=== PATIENT | male | born 1935 | race Caucasian/White ===

== ENCOUNTER 2019-04-16 07:40 | Day surgery (SDC) | payer OTHER ==
--- NOTE | 2019-04-14 12:07 | RAD REPORT ---
EXAM DESCRIPTION: RAD - Chest Pa And Lat (2 Views) - 04/14/2019 11:52 am CLINICAL HISTORY: preop Chest pain. COMPARISON: CHEST PA AND LAT 2 VIEW dated 03/27/2010 FINDINGS: The lungs are mildly emphysematous but clear. The heart is moderately enlarged in size. No displaced fractures. IMPRESSION: Mild COPD.
[2019-04-14 12:14] LABS: Absolute Lymphocytes (CBC) 1.3 K/uL (0.7-4.9); Basophils % 0.8 % (0-1.3); Hematocrit 39.8 % (39.6-49.0); Lymphocytes % 20.9 % (15.3-44.8); MPV 8.1 fL (7.6-11.3)
[2019-04-16] MEDS ORDERED: CEFAZOLIN/SWI 1gm 1 GM/10 ML SYR ONE (08:15)
[2019-04-16] MEDS ORDERED: Ringers Lactate 1,000 ML IV ONE (08:15)
[2019-04-16] MEDS ORDERED: LIDOCAINE 1% MPF 5 ML VIAL ONE (08:27)
[2019-04-16] MEDS ORDERED: propofoL 200 MG/20 ML VIAL IV ONE ×2 (08:27→09:50)
[2019-04-16] MEDS ORDERED: FENTANYL CITR 100 MCG/2 ML ONE ×2 (08:27→09:50)
[2019-04-16] MEDS ORDERED: ONDANSETRON 4 MG/2 ML VIAL ONE (09:50)
[2019-04-16] MEDS ORDERED: LIDOCAINE 2% MPF 5 ML VIAL ONE (09:50)
[2019-04-16] MEDS ORDERED: MIDAZOLAM HCL 2 MG/2 ML INJ ONE (09:50)
[2019-04-16] MEDS: HYDROMORPHONE HCL 1 MG/ML INJ ONE ×4 (11:20→11:35)
[2019-04-16] MEDS: MEPERIDINE HCL 25 MG/0.5 ML ONE ×2 (11:39→11:42)
[2019-04-16] MEDS ORDERED: KETOROLAC 30 MG/ML INJ ONE (11:42)
[2019-04-16] MEDS ORDERED: HYDROCODONE/APAP 7.5/325 MG TAB PO ONE (12:30)
[2019-04-16] MEDS ORDERED: HYDROCODONE/APAP 7.5/325 MG TAB ONE (12:34)
[2019-04-16] MEDS ORDERED: TAMSULOSIN 0.4 MG SR CAP PO ONE ×2 (14:05→14:15)
[2019-04-16 16:32] VITALS: TEMP 97.5
[2019-04-16 16:35] VITALS: O2SAT 98
[2019-04-16 16:36] VITALS: BP 139/81
--- NOTE | 2019-04-16 22:07 | OP ---
Date of Procedure: 04/16/2019 Surgeon: Rafal Arreguin MD Interventional Cardiologist: CHRISTIN Hernandez Preoperative Diagnosis: Recurrent right inguinal hernia. Postoperative Diagnosis: Recurrent incarcerated right inguinal hernia. Estimated Blood Loss: Minimal. Specimen: Hernia sac. Finding: As above. Anesthesia: General. Complications: None. Disposition: Patient tolerated the procedure in stable condition, taken to Recovery in good general condition. Operative Note: The patient was brought to the OR and placed in supine position. General anesthesia was begun. Patient was prepped and draped in the usual sterile fashion. Marcaine 0.5% was infiltra reynaldo in a field block fashion. A 15-blade was used to make a 5 cm oblique incision between the pubic tubercle and the anterior iliac superior spine. Subcutaneous tissues were divided. Tamir fascia id entified and divided and to that the hernia sac was seen with small bowel present and this was a dire ct hernia. There was no aponeurosis to be identified in the conjoined tendon. There was a hole betw een the conjoined tendon and shelving edge, approximately 3 cm in diameter. The bowel was carefully reduced back into the peritoneal cavity. Part of the hernia sac was excised and sent to pathology an d then 2-0 Prolene was used to close the defect with interlocking 2-0 Prolene suture and then the Mar cameron mesh placed over the repair, secured with the VersaTack stapler medially to the pubic tubercle, s uperior to the conjoined tendon, and inferior to the shelving edge, laterally to each other. There w as no indirect sac. Cord structures were all retracted out of the field of dissection, placed back i n ab anatomic location after the repair and then 3-0 chromic was used to approximate the Tamir fasci a and 3-0 chromic also used to close skin. Sterile dressing was applied. Patient was awakened and t aken to Recovery in good general condition. Discharge Note: The patient will go to Day Surgery and home when stable. Disposition: Home. Condition: Stable. Discharge Instructions: Resume home medications and diet. Activity as tolerated. No heavy lifting. Remove outer dressing in 2 days. Shower. Keep wound clean and dry. Keep Steri-Strips on at all t imes, ice pack, scrotal support, Tylenol No. 3 one tablet p.o. q.4 p.r.n. pain. Follow up in my offi ce in a week. Call for appointment. /CALLYL Voice ID: [id number] Report ID: [id number]
== END 2019-04-16 15:45 | disposition home or self-care (01) ==
LOC: OR 07:40
PROVIDERS: ATTEND Surgery
PROC: 0YU50JZ Supplement Right Inguinal Region with Synthetic Substitute, Open Approach (ICD-10-PCS; principal; 2019-04-16 09:00)
DX: K40.31 Unilateral inguinal hernia, with obstruction, without gangrene, recurrent (principal); I48.20 Chronic atrial fibrillation, unspecified; I10 Essential (primary) hypertension; Z80.0 Family history of malignant neoplasm of digestive organs
CPT/HCPCS: 85025; 80048; 36415; 88302; 71046; 49521; J2704; J2250; J3010; J2175; J1170 ×2; J0690; J7120; J2405

== ENCOUNTER 2020-09-30 08:36 | Emergency (ER) | payer OTHER ==
--- OUTSIDE RECORDS SUMMARY | 2020-09-30 08:41 | XMS REPORT | Continuity of Care Document ---
:1935 Author Organization [facility] t Address [address] [place] [address] Care Team Providers Name Role Phone MAGDY Primary Care Physician Unavailable Shelia ALONZO Attending Clinician Miracle Johnson MD Attending Clinician Miracle JOHNSON Attending Clinician Unavailable Selina Cabezas MD Attending Clinician aDvid QURESHI, J Attending Clinician Simran STANTON Attending Clinician SIMRAN Attending Clinician Unavailable Yudith CHEATHAM, A Attending Clinician Unavailable Siomara Hopson MD Attending Clinician SIOMARA HOPSON Attending Clinician Unavailable Farrukh GREEN Attending Clinician FARRUKH Attending Clinician Unavailable Kenrick Palomino MA Attending Clinician Zachary MURRAY Attending Clinician Unavailable Lizy ALONZO, RDiane Attending Clinician Mechelle ALONZO Attending Clinician MECHELLE Attending Clinician Unavailable Nayeli ALONZO N Attending Clinician Tami TYLER Attending Clinician Unavailable DETT Attending Clinician Unavailable MAGDY Attending Clinician Unavailable MD MAGDY Attending Clinician Unavailable MAGDY Admitting Clinician Unavailable MD MAGDY Admitting Clinician Unavailable Payers Payer Name Policy Type Policy Effective Date Expiration Date Sour ce Number AETERIKA MEDICAREAETNA [id number] 2013 MD Kathie carlisle MEDICARE 00:00:00 [id number] -PresentMedicare AETERIKA MEDICAREAETNA [id number] [address] MEDICARE HMO/PPO 00:00[id number] Problems Condition Condition Condition Status Onset Resolution Last Treating Co mments Source Name Details Category Date Date Treatment Clinician Date Dyspnea Dyspnea Disease Active Last MD 5-14 Assessmen Anderso 00:00: t & Plan: n 00 Formattin g of this note might be different from the original. Perhaps secondary to his heartburn , advised to follow up with cardiolog y Abdominal Abdominal Disease Active Met hodi pain pain 3-18 st 00:00: Hospita 00 l Liver Liver Disease Active 2019-03 Last function function 1-13 Assessmen And erso tests tests 00:00: t & Plan: n abnormal abnormal 00 Formattin g of this note might be different from the original. Recommend patient continue to follow up with PCP for evaluatio n and managemen t. Patient asymptoma tic at this time. 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 Monitor on follow up. Encounter Encounter Disease Active Overview: MD for other for other 1-06 Formattin A nderso preprocedu preprocedu 00:00: g of this n ral ral 00 note examinatio examinatio might be n n different from the original. Outside records received and sent for scannin. Last Card progress note 09/23/18: A-fib stable, rate controlle d. Anticoagu lation is adequate. Continue current medical therapyEd malcolm - improved. No changes made to present regimenHT N- stable, reasonabl e well-cont rolled. No changes to present regimen2. STRESS test 05/27/12: Normal myocardia l perfusion , not gated due to A-fib3. ECHO 05/26/12: EF 50-55%, dilated LA, RA, dilated aorta, LVH, A fib, trace AR, MR, VA, poor LVC, mild TR, mild PHTN Hypertensi Hypertensi Disease Active Overview : on on 03-09 Formatashleigh Anderso 00:00: g of this n 00 note is different from the original. BP Readings from Last 3 Encounter s: 03/09/19 132/75 02/23/19 149/73 11/21/18 147/75 Last Assessmen t & Plan: Formattin g of this note might be different from the original. 158/77 in clinic today. Will continue to monitor with routine BP evaluatio ns. Atrial Atrial Disease Active Overview: fibrillati fibrillati 03-09 Shakira Andrhianna on on 00:00: g of this n 00 note might be different from the original. Rate controlle d. Asymptoma tic. On anticoagu lation.EK G today 03/09/2019: Atrial fibrillat ion, rate 64. Abnrm T, consider ischemia, anterolat eral lds Followed by outside cardiolog ist Dr Wicho Fairchild in [place], [place] ). Sees him q6mths, last visit was 10/2018. Pt does not recall having a recent stress or echo over the last couple of years. Reports 10/2018 he was seen for RLE edema. Was placed on lasix and potassium was added to his losartan. He was also placed on sodium restricti on and edema resolved. None noted today.Las t Assessmen t & Plan: Formattin g of this note might be different from the original. Patient had a pacemaker inserted in August 23. He states he has been feeling much better since then. Follow up in 3 months with local cardiolog ist. Current Current Disease Active Overview: use of use of 03-09 Shakira Anderso anticoagul anticoagul 00:00: g of this n ant ant 00 note might be different from the original. On pradaxa for A-fib. Pt unsure when exactly to hold so he did not take it this morning. LD was 03/08/2019 PM. To see IMPAC today. Neuropathy Neuropathy Disease Active Overview : - Formattin Anderso 00:00: g of this n 00 note might be different from the original. jake feet, LLE, on gabapenti n, followed by outside neurologi st Ex-smoker Ex-smoker Disease Active Overview: - Formattin Anderso 00:00: g of this n 00 note might be different from the original. Remote hx, quit 38 yrs ago Sleep Sleep Disease Active Overview: apnea apnea 03-09 Formattin Anderso 00:00: g of this n 00 note might be different from the original. Not using CPAP. Allergic Allergic Disease Active Overview: rhinitis rhinitis 03-09 Formattin And erso 00:00: g of this n 00 note might be different from the original. On shala and singulair daily. Had asthma as a child, but denies any issues as an adult. 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 M[facility] Disease Active current current 03-09 Anderso use of use of 00:00: n anticoagul anticoagul 00 ant ant Multiple Multiple Disease Active actinic actinic 08-07 Anderso keratoses keratoses 00:00: n 00 Basal cell Basal cell Disease Active M D carcinoma carcinoma 08-07 Miguel rso of skin of of skin of 00:00: n right right 00 upper upper limb, limb, including including shoulder shoulder Personal Personal Disease Active Last MD history of history of 08-07 Assessmen Anderso malignant malignant 00:00: t & Plan: n melanoma melanoma 00 Formattin of skin of skin g of this note might be different from the original. The CT imaging study was reviewed today with result interpret ation as indicated , I personall y reviewed the images and agree that there is no definite evidence of disease recurrenc e/metasta ses. Lab results were reviewed and all are within acceptabl e parameter s. Please refer to EPIC for full detailed labs and imaging report. US will be completed after this visit and we will call him next week for result review. The patient will continue in observati on and will return to clinic in 6 months if US shows no evidence of disease recurrenc e. Patient will continue follow up with Dermatolo gy in the interim. 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 Mr Diggs is an 83 year old male with stage IIB scalp melanoma. He underwent wide local excision of the right occipital scalp melanoma and sentinel lymph node biopsies which were negative. He presents today after restaging CTchest w/o contrast and USG of the neck. Labs and PE are stable. CTchest demonstra donta tiny nonspecif ic lung nodules that remain stable from previousl y and USG of HnN is without adenopath y.Patient was seen in clinic today and is doing well off treatment . His labs are within acceptabl e parameter s.He will follow up with Dr. Hopson in 4 month(s) for restaging scans.Pat ient encourage d to follow-up with dermatolo gy and continue self skin and lamin exams. Patient to notify us of any changes to current health status. Allergies, Adverse Reactions, Alerts This patient has no known allergies or adverse reactions. Family History Family Member Diagnosis Comments Start Date Stop Date Source Natural father [facility] mother [facility] Natural brother Colon cancer MD Rivera rselizabeth Family member Diabetes MD Martinez Family member Heart disease MD Ornelas son Family member Hypertension MD Pena on Family member Stroke MD Martinez Family member VTE MD Martinez Social History Social Habit Start Date Stop Date Quantity Comments Source History of tobacco Current smoker MD Martinez use Tobacco use and 2020-07-19 2020-07-19 Former user [facility] t exposure 00:00:00 00:00:00 Hospital Alcohol intake 2020-07-19 2020-07-19 Ex-drinker [facility] 00:00:00 00:00:00 (finding) [facility] Cigarettes smoked 2020-07-15 2020-07-15 MD Miguel lai current (pack per 00:00:00 00:00:00 day) - Reported Cigarette 2020-07-15 2020-07-15 MD Martinez pack-years 00:00:00 00:00:00 Alcohol Comment 2019-03-09 2019-03-09 occ beer with And hao 00:00:00 00:00:00 dinner Sex [birth year] At [birth year] M [facility] 00:00:00 00:00:00 Hospital Smoking Status Start Date Stop Date Source Former smoker 2020-07-19 00:00:00 2020-07-19 00:00:00 [facility] Medications Ordered Filled Start Stop Current Ordering Indication Dosage Frequency Signature Comments Components Source Medication Medication Date Date Medication? Clinician (SIG) Name Name minocycline Yes 100mg Q12H Take 100 M ethodi (MINOCIN) 5-[address] 100 MG 17:40: mouth Hospita capsule 59 every 12 l (twelve) hours. To start after PM insertion omega-3s/dh Yes 300mg QD Take 300 M ethodi a/epa/fish 5-[address] oil (OMEGA 17:40: mouth Hospit a 3 ORAL) 59 daily. l cyclobenzap Yes 10mg [id number] Take 10 mg Methodi rine 5-18 [id number] mouth [address] (FLEXERIL) 17:40: 3D (three) Hosp lópez 10 mg 59 times a l tablet day as needed for muscle spasms. mv-mn/iron/ Yes 1{tbl} Take 1 Me thodi folic 5-[address] acid/herb 14:04: mouth. Hospit a 190 34 l (VITAMIN D3 COMPLETE ORAL) zinc Yes 50mg QD Take 50 mg Methodi gluconate 5-[address] 50 mg 14:04: daily. Hospita tablet 34 l [place]DROcod[place] [id number] 1{tbl} Q6H Take 1 M ethodi -acetaminop 5-[address] hen (NORCO) 14:04: mouth Hospi ta 10-325 mg 34 every 6 l per tablet (six) hours as needed for moderate pain .acute pain. montelukast Yes 10mg QD Take 10 mg Methodi (SINGULAIR) 5-[address] 10 mg 14:04: nightly. Hospita tablet 34 l fexofenadin Yes 180mg QD Take 180 M ethodi e (SHALA) 5-[address] 180 MG 14:04: mouth Hospita tablet 34 daily. l furosemide 2020- No 40mg QD Take 40 mg Methodi (LASIX) 40 5-18 05-[address] mg tablet 14:04: 00:00 daily. Hospi ta 04 :00 l dabigatran Yes 150mg Q.5D Take 150 Me thodi etexilate 5-[address] (PRADAXA) 14:02: mouth 2 Hospi ta 150 mg 54 (two) l capsu times a day. bimatoprost Yes 1[drp] QD Administer Methodi (LUMIGAN) 5-[address] 0.01 % 14:02: both eyes Hospit a ophthalmic 54 nightly. l drops dorzolamide Yes 1[drp] Q.5D Administer Methodi -timoloL 5-[address] (COSOPT) 14:02: both eyes Hosp lópez 22.3-6.8 54 2 (two) l mg/mL times a ophthalmic day. solution cholecalcif Yes Take by MD grace, 5-14 mouth Anderso vitamin D3, 16:07: daily. n (VITAMIN 22 D3) 5,000 units tab tablet fexofenadin Yes Take by MD aggarwal HCl 5-14 mouth as Anderso (SHALA 16:01: needed. n ORAL) 32 triamcinolo Yes Excoriated Apply MD castillo 2-12 eczema topically Anderso (KENALOG) 00:00: to n 0.1% cream 00 affected area(s) twice daily. For red itchy skin on chest fish 2019-03- No 2g Take 2 g MD oil-omega-3 1-13 11-13 by mouth And erso fatty acids 15:37: 00:00 daily. n 300-1,000 25 :00 mg capsule losartan 2019-03- No 100mg Take 100 MD (COZAAR) 1-13 11-13 mg by Anderso 100 mg 15:37: 00:00 mouth n tablet 25 :00 daily. bimatoprost 2019- Yes Administer MD (LUMIGAN) 0-12 to both Anderso 0.03 % 17:04: eyes at n ophthalmic 02 bedtime. drops multivitami 2019- Yes Take by MD n 0-12 mouth. Anderstony (THERAGRAN) 17:04: n tab tablet 02 HYDROcodone 2019-03 Yes 1{tbl} Take 1 MD -acetaminop 0-12 tablet by And rhianna nava (NORCO) 17:04: mouth n 10 mg-325 02 every 8 mg per (eight) tablet hours as needed. Back pian dabigatran 2019- Yes 150mg Take 150 MD etexilate 0-12 mg by Anderstony (PRADAXA) 17:04: mouth n 150 mg 02 twice capsule daily. ascorbic 2019- Yes 1000mg Take 1,000 M D acid, 0-12 mg by Anderstony vitamin C, 17:04: mouth n (vitamin C) 02 daily. 1000 mg tablet senna-docus 2019-03 Yes 1{tbl} Take 1 MD ate 0-12 tablet by Andrhianna (sennosides 17:04: mouth 3 n -docusate 02 (three) sodium) 8.6 times a mg-50 mg day as tablet needed. ZINC ORAL 2019- Yes 50mg Take 50 mg MD 0-12 by mouth Anderso 17:04: daily. n 02 mupirocin 2019-03 2020- No Apply MD (BACTROBAN) 0-12 10-12 topically An derso 2% cream 17:03: 00:00 to n 58 :00 affected area(s). cyclobenzap 2020-0 Yes 10mg Take 10 mg MD rine 7-10 by mouth Anderso (FLEXERIL) 16:42: as needed. n 10 mg 14 tablet traMADol 2019-0 Yes Malignant 50mg Take 1 MD (ULTRAM) 50 1-09 melanoma of tablet (50 Anderso mg tablet 00:00: scalp and mg) by n 00 neck mouth every 6 (six) hours as needed for moderate pain. furosemide 2019- Yes 1{tbl} Take 1 MD (LASIX) 40 7-31 tablet by Miguel rso mg tablet 00:00: mouth n 00 daily as needed. Has not taken recently triamcinolo 2020- No Excoriated Apply MD castillo 05-19 eczema topically Anderso (KENALOG) 00:00: 00:00 to n 0.1% cream 00 :00 affected area(s) twice daily. Discontinu e when texture of skin returns to normal montelukast Yes 1{tbl} Take 1 MD (SINGULAIR) 2-14 tablet by And erso 10 mg 00:00: mouth as n tablet 00 needed. amoxicillin Yes Bitten by 875mg Take 1 MD -clavulanat 1-11 cat, tablet Jean o e 00:00: initial (875 mg) n (AUGMENTIN) 00 encounter by mouth 875 mg-125 twice mg per daily. tablet dorzolamide Yes 1[drp] Administer MD -timolol 6-21 1 drop to Jean o (COSOPT) 00:00: both eyes n 2%-0.5% 00 twice ophthalmic daily. solution Immunizations Ordered Immunization Filled Immunization Date Status Commen ts Source Name Name FastDue SARS-CoV-2 2020-05-13 Completed MD And erson Vaccination 00:00:00 Vital Signs Vital Name Observation Time Observation Value Comments Source WEIGHT 2020-07-15 09:03:00 76.9 kg WEIGHT 2020-07-15 09:03:00 76.9 kg WEIGHT 2019-12-14 11:58:00 79.9 kg WEIGHT 2019-12-14 11:58:00 79.9 kg WEIGHT 2019-09-11 11:16:43 80.2 kg Systolic blood 2020-07-22 16:50:09 156 mm[Hg] pressure Diastolic blood 2020-07-22 16:50:09 79 mm[Hg] MD Kathie carlisle pressure Heart rate 2020-07-22 16:50:09 75 /min MD Ornelas son Body temperature 2020-07-22 16:50:09 36.89 Cyndi MD Victor Manuel rivera Respiratory rate 2020-07-22 16:50:09 18 /min MD Victor Manuel rivera Systolic blood 2020-07-19 17:41:00 180 mm[Hg] [facility] pressure Diastolic blood 2020-07-19 17:41:00 101 mm[Hg] [facility] pressure Heart rate 2020-07-19 17:41:00 78 /min [facility] Body temperature 2020-07-19 17:41:00 36.78 Cyndi [facility] Body weight 2020-07-19 17:41:00 76.658 kg [facility] BMI 2020-07-19 17:41:00 22.30 kg/m2 [facility] Body weight 2020-07-15 14:03:00 76.9 kg MD Johnson dutta BMI 2020-07-15 14:03:00 22.99 kg/m2 MD Johnson dutta Oxygen saturation in 2020-07-15 14:01:39 99 /min MD Martinez Arterial blood by Pulse oximetry Procedures Procedure Date / Time Performing Clinician Source Performed PATHOLOGY BIOPSY 2020-07-22 17:18:00 Ana Johnson MD INTERPRETATION US HEAD NECK SOFT TISSUE 2020-07-15 18:28:30 Rodolfo Khalil MD PATHOLOGY BIOPSY 2020-07-15 15:22:00 Ana Johnson MD INTERPRETATION CT CHEST WO CONTRAST 2020-07-15 13:36:15 Huber Mao MD Miguel rson COMPLETE BLOOD COUNT W/ 2020-07-15 12:14:00 Rodolfo Khalil MDon DIFFERENTIAL COMPREHENSIVE METABOLIC 2020-07-15 12:14:00 TimRodolfo wilde MDon PANEL LACTATE DEHYDROGENASE 2020-07-15 12:14:00 Rodolfo Khalil MD And erselizabeth Results CBC 2020-07-15 12:14:00 Rodolfo Khalil MD MANUAL DIFFERENTIAL 2020-07-15 12:14:00 TimRodolfo wilde MD GLUCOSE LEVEL 2020-07-15 12:14:00 Rodolfo Khalil MD ELECTROLYTE PANEL 2020-07-15 12:14:00 Rodolfo Khalil MD SERUM CREATININE 2020-07-15 12:14:00 Rodolfo Khalil MD .GLOMERULAR FILTRATION RATE 2020-07-15 12:14:00 Rodolfo Khalil MD CALCIUM LEVEL TOTAL 2020-07-15 12:14:00 Rodolfo Khalil MD ALBUMIN LEVEL 2020-07-15 12:14:00 TimciucRodolfo MD ALKALINE PHOSPHATASE 2020-07-15 12:14:00 TimciucRodolfo MD Miguel rselizabeth ALANINE AMINOTRANSFERASE 2020-07-15 12:14:00 TimciRodolfo sprague MD ASPARTATE AMINOTRANSFERASE 2020-07-15 12:14:00 TimciRodolfo sprague TOTAL PROTEIN 2020-07-15 12:14:00 TimciucRodolfo MD FRACTIONATED BILIRUBIN 2020-07-15 12:14:00 TimciucRodolfo MD derson BLOOD UREA NITROGEN 2020-07-15 12:14:00 TimciucRodolfo MD Johnson [facility] CT PELVIS WO CONTRAST 2020-05-19 22:31:41 Noman Medel [facility] HEAD NECK SOFT TISSUE 2020-01-15 14:43:[address] CHEST WO CONTRAST 2020-01-15 13:09:00 Timciuc, Rodolfo ALONZO Miguel rselizabeth COMPLETE BLOOD COUNT W/ 2020-01-15 12:31:00 TimciucRodolfo MD nderson DIFFERENTIAL COMPREHENSIVE METABOLIC 2020-01-15 12:31:00 TimciucRodolfo MD nderson PANEL LACTATE DEHYDROGENASE 2020-01-15 12:31:00 TimciucRodolfo MD And erson Results CBC 2020-01-15 12:31:00 TimciRodolfo sprague MD MANUAL DIFFERENTIAL 2020-01-15 12:31:00 [facility]fo [facility] 2020-01-15 12:31:00 TimRodolfo wilde MD BLOOD UREA NITROGEN 2020-01-15 12:31:00 TimciRodolfo sprague [facility] ELECTROL[facility]TE PANEL 2020-01-15 12:31:00 TimciucRodolfo MD tami SERUM CREATININE 2020-01-15 12:31:00 TimRodolfo wilde MD .GLOMERULAR FILTRATION RATE 2020-01-15 12:31:00 Rodolfo Khalil MD CALCIUM LEVEL TOTAL 2020-01-15 12:31:00 TimRodolfo wilde [facility] ALBUMIN LEVEL 2020-01-15 12:31:00 TimRodolfo wilde MD ALKALINE PHOSPHATASE 2020-01-15 12:31:00 Rodolfo Khalil MD marlenielizabeth ALANINE AMINOTRANSFERASE 2020-01-15 12:31:00 Rodolfo Khalil MD ASPARTATE AMINOTRANSFERASE 2020-01-15 12:31:00 Rodolfo Khalil TOTAL PROTEIN 2020-01-15 12:31:00 Rodolfo Khalil MD FRACTIONATED BILIRUBIN 2020-01-15 12:31:00 Rodolfo Khalil MD Plan of Care Planned Activity Planned Date Details Comments Source Future Scheduled Test COVID-19 VACCINE (1) [facility] [code = COVID-19 VACCINE (1)] Future Scheduled Test SHINGLES VACCINES (#1) [facility] [code = SHINGLES VACCINES (#1)] Future Scheduled Test 65+ PNEUMOCOCCAL [facility] VACCINE (1 of 1 - PPSV23) [code = 65+ PNEUMOCOCCAL VACCINE (1 of 1 - PPSV23)] Future Scheduled Test INFLUENZA VACCINE [code [facility] = INFLUENZA VACCINE] Encounters Start End Encounter Admission Attending Care Care Encounter Source Date/Time Date/Time Type Type Clinicians Facility Department ID 2020-07-22 2020-07-22 Outpatient DIANA [facility]NS[facility] [id number] 11:18:37 13:11:58 ANA garrett 2020-07-19 2020-07-19 Office Diane Cabezas2.840.1 [id number] Methodi 11:43:04 11:58:04 Visit Stephan [address]441.1.[address] [place] 3.430.2.7 Hospit a .3.966155 l .8 2020-07-19 2020-07-19 Outpatient TRINA [facility] [id number] [place] 00:00:00 00:00:[address]AN [address] 2020-07-19 2020-07-19 Travel 1.2.840.1 [id number] [id number] Methodi 00:00:00 00:00:[address] 3.430.2.7 0.2.7.3.698 Ho spita .3.567198 084.8 l .8 2020-07-15 2020-07-15 Outpatient DIANA KHALIL, MDA MDA [id number] 06:58:16 23:59:00 RODOLFO garrett 2020-07-15 2020-07-15 Outpatient DIANA KHALIL, MDA MDA [id number] 13:00:43 13:00:43 RODOLFO garrett 2020-07-15 2020-07-15 Outpatient DIANA JOHNSON, MDA MDA [id number] 08:55:29 12:57:38 ANA garrett 2020-07-15 2020-07-15 Outpatient DIANA HOPSON, MDA MDA [id number] 08:55:57 11:28:28 YUSRA garrett 2020-07-15 2020-07-15 Outpatient DIANA JOHNSON, MDA MDA [id number] 08:54:58 10:39:24 ANA garrett 2020-07-15 2020-07-15 Outpatient HUBER WYNN MDA MDA [id number] 07:19:15 07:19:15 Jean garrett 2020-07-05 2020-07-05 [facility], .2.840.1 [id number] Methodi 00:00:00 00:00:[address] 3.430.2.7 Hospit a .3.389437 l .8 2020-05-19 2020-05-[address]1 [id number] Methodi 15:48:00 23:59:00 Encounter Noman Candelario50.1.[address] 3.430.2.7 Hospit a .3.404698 l .8 2020-05-19 2020-05-[address]840[address]1 [id number] Methodi 14:25:19 15:19:50 Visit Noman Candelario50.1.[address] 3.430.2.7 Hospit a .3.995409 l .8 2020-05-19 2020-05-[address]840.1 [id number] Methodi 09:51:39 10:06:39 Visit Stephan 63824.1.[address] [place] 3.430.2.7 Hospit a .3.899293 l .8 2020-05-19 2020-05-19 Outpatient TRINA [facility] [id number] [place] 00:00:00 00:00:00 STEPHAN [address] 2020-05-19 2020-05-19 Outpatient LIZY [facility] [id number] [place] 00:00:00 00:00:00 NOMAN [address] 2020-05-19 2020-05-19 Outpatient LIZY [facility] [id number] [place] 00:00:00 00:00:00 NOMAN [address] 2020-05-19 2020-05-19 Orders Sharma, 1.2.840.1 [id number] Methodi 00:00:00 00:00:00 Only Maylin 15572.1.[address] 3.430.2.7 Hospit a .3.184157 l .8 2020-05-19 2020-05-19 Travel 1.2.840.1 1.2.517.774 [id number] Methodi 00:00:00 00:00:[address] 3.430.2.7 0.2.7.3.698 Ho spita .3.490077 084.8 l .8 2020-05-13 2020-05-13 Outpatient DIANA MIN, MDA MDA [id number] 10:17:11 10:17:11 KIRIT garrett 2020-04-15 2020-04-15 Outpatient DIANA JOHNSON, MDA MDA [id number] 09:51:54 12:13:14 ANA garrett 2020-01-15 2020-01-15 Outpatient DIANA KHALIL, MDA MDA [id number] 06:34:07 23:59:00 RODOLFO garrett 2020-01-15 2020-01-15 Outpatient DIANA HOPSON, MDA MDA [id number] 09:09:07 14:05:46 YUSRA garrett 2020-01-15 2020-01-15 Outpatient EL JOHNSON, MDA MDA [id number] MD 09:09:26 10:49:07 ANA garrett 2020-01-15 2020-01-15 Outpatient EL TIMCIUC, MDA MDA [id number] MD 07:12:55 07:12:55 RODOLFO garrett 2020-01-15 2020-01-15 Outpatient EL TIMCIUC, MDA MDA [id number] 06:15:00 06:33:00 RODOLFO garrett 2020-01-14 2020-01-14 Outpatient EL TIMCIUC, MDA MDA [id number] 00:00:00 00:00:00 RODOLFO garrett 2020-01-14 2020-01-14 Outpatient EL TIMCIUC, MDA MDA [id number] MD 00:00:00 00:00:00 RODOLFO garrett 2019-12-14 2019-12-14 Outpatient DIANA TYLER, MDA MDA [id number] MD 11:14:38 23:59:00 MICHELLE garrett 2019-11-20 2019-11-20 Outpatient EL JOHNSON, MDA MDA [id number] 00:00:00 00:00:00 ANA garrett 2019-11-02 2019-11-02 Outpatient EL NAYELI, MDA MDA [id number] 00:00:00 00:00:00 MICHELLE garrett 2019-09-11 2019-09-11 Outpatient EL DETT, TAMAR MDA MDA [id number] 07:34:39 23:59:00 Jean garrett 2019-09-11 2019-09-11 Outpatient EL EMILIANA, MDA MDA [id number] 10:22:46 15:11:13 YUSRA garrett 2019-09-11 2019-09-11 Outpatient EL JOHNSON, MDA MDA [id number] 11:26:16 14:28:39 ANA garrett 2019-09-11 2019-09-11 Outpatient EL DETT, TAMAR MDA MDA [id number] 08:52:53 08:52:53 Jean garrett 2019-09-11 2019-09-11 Outpatient EL DETT, TAMAR MDA MDA [id number] 08:10:12 08:10:12 Jean garrett 2019-08-24 2019-08-25 Outpatient [facility] [id number] [place] 00:00:00 00:00:00 NADIM [address] 2019-08-20 2019-08-20 [facility] [id number] [place] 00:00:00 00:00:[address] NADIM [address] Results Test Description Test Time Test Comments Results Result Comments Source Pathology Biopsy Interpretation 2020-07-23 16:07:52 Test Item Value Reference Range Interpretation Comme nts Submitted l1kndINmDZVeyCL6WOVaVIRbs2ywo0XlxBZhnXZhJCmauKCrjsYpjw64gZI6tZ20QY9pVPAnMrD2MSOr ljI0Dwe7KINjRSCcgPXoY491t3lac3tvntLokYB2pVkkPFDuxmypPkF9VXrtGRKacjztQPk9JBojDCXx vHT9GOSeiFWnG3ZuKSWjBO7vbmw5VSU7WQzjSCLwLxP Clinical 6WKYobKDfKVVvaGjmGYncv827FQQ5VoJtDBWwuiApgEmfdJ9eRnQaPMSRSuAMsS1ev9dzxHIvhsRgWUS DQyBccGFyfQ== History (test code = 20960) Diagnosis x1oduHQdXVPqkNZ1BYAzLMXjr2zfe2TrdDAbrXCbCYitpYZwevBoxh24jGE9oY56AK4nCNNzKqV1NWFa yoR6Jsr7AOCwOUJxaWWxY715r3ova9fdnjLsuXU4XXEpXFOkL9TbFH4zNLZviJKaP36lmAVbOUN7DIUa GIGoeSGxTUUwYHT4RZSgdDMfP2reIPPvPJ3boyjwDUe (test code iIApvJWGkmCN2BZTkuFXcZ6EqTWHbQVuuDAWswtw7ZyZgFt9viTRraIvxAXeaKIXoNUGcLMguEDBxSjG eW9KtWLW6YSRjwS3yDZvuClWfRU87BRMhq5Uzm2fbzCywFWFzZOVvnNfcc9W8BEBupkdxeStyRTnryY4 8SbCqT7WxQMMCUU4hNN3OHJYWMqFBTFlOOWeZCQiyMT = 34) LKHHnWEbYNSJJRYEHXWVTSM8SWPV4IF0YXZBQWBYCTB1SWCIBZWDUQDCFWPAxZLJJGRyKXNr4UZRsbOI MAP9nIKvYOBYYRECHoCrGKGD8aaPTyRNAuxRfjeXFvr3TtXBUlo4eaTGPlAKSrKBBpB5DduI8aWCSefP luaWMgZGFtYWdlLiBccGFyfQ== Gross z9phvFGlTLTjiEPBWFZbAPouzrUhMCWewSPtM6JlhrieTAqyPN2vDU5pyBrznTVadLIhHP6AEGZlZdHx FISxhXJuelPnSqEeGUPscCOquZT1AIAlHC0krtauEKobEYwwCOTdwnG5OJUxgNPfN7JqLEEgQT7vstgs NGQ0YXjgfA2pvgZUNknmSb8eaJMbjLntAlBmEbHlUUI Descriptio oLVRvVIPdqUmgULVsFRc2lP2KDzluMWO2KPXRBllcUSMqGB2Dj8eoSKCwoJLeYVV1FJqfpLWgJKHyDBU fUOl6TWTfTItfqCDlNA2kgJxbVusglLbeb3TwmWTsIKtbQDPdZFWmBKqbGZGmPF5NFlSqOBNpCAm9Orx oSKd5RXo1ZM5HQzBtARSpQRqjWTY6GVMjDLv7NYoyWN n (test 9YMKfvICX6FVb3YiZ1TAT3RaUlXELrIaYwBICoMKWxQPekFVstfaDsOSPcKQBeNGaeZcccJUchJ88sxO kwnU8eTcfdkePgDHS0VFGlayMVShljmOIlxkneaIfoZtSdtPFyIlRcKZsrfWZhyAJwPHibgtDtjhsaXU LLYcmxfHQdkXelZAEtLbLyY0voxxmcxUQeoOOslnIbw code = agrviThcW86mCIzixomBxWzEUMcffMhw7ExRT1lASPhd1cfV8tcDNLjtbRdt8H9UCMir1QyID60BWSoL LvftVSwTYE7dWA9VR0bERI5hnUeUEEhKSR2TFOqOoS3DJQoTxKczD8xPDBmUKIqKEapWEFwyBRcCJZnl SNzn7LjIQApGMAln01bgGfuxJEnZILhiVUezbCrKpMm 5153197290 jHLbHpJrE65rnQ6eXJCeIVTvHdDzD94hXGxtbJSvui6hCYCqXEAvLOCgDWI0VG4ggoodzk1xMGPqXGAi gIXxzD7vquKtwzZkrzbcTLPxbAJdHNJlZCQhGGcsyVMeJUK4vY1xPUWpFY3jPSA8Xr4wdWQyEWSrehMc haDlhX6vnDjmKHZOPOS2fZ6fJDMwHQN6OSIkBsNbHMC ) lhRZbzY7aTQEbs8etNEO7dClxPCZnSVA6XL9dPNTqOTA7hC6dZEN8Gu0spXCvUETeyp1tPVAoIJ6pQZP wZNNaYSAaaMntsm7uEShsxs04HHF8q1lyaLIjJTerGccnnRCifgQ7QBtKYUMOAKtOMyXqDX9wKJkSWrk CWQvDOstlGSAgDvlcnXRNIDX1JEpewCdzgBo3n4guhX Gfa3r1FAtuKCM2eKeQa9bkwNYyYGumUxpniVRkpsV9RKrJYFQRAMpLUsRhLG7oDYrGFinQIrX8GoFmXC Q5IFmRS4JNlTO3Gmd2NMo7kZabWfpmnnVccBVlBhVWhX3tpSehqV2nvCZzR3ziTaWdXNMDPniooGCegq nfeWzqIzLrrTKlXoHudCzjiX81YBAjxGEdPZS5TK7nS UFkwnulMFLzAAPqSGA8BRoidR57dUJhYTXmCBIkfRLhsR6PQSRuGCP0GDrgfW29pTJzPN8YUWPpOSG5B JSqkHVcGWR3KA6jzK7BhJ== Disclaimer y3glyRAoKYHfiLStTiOhPUFxIOCnr9qbPRCrmFIyYmLtAlAdOsGbDkvrhLImWGDnFkJlq7cdv805wROm n2ytNCHgRiJ3hCUdVDJqpXJcQ001LDOyAQnic1vop6PgSMWeyJQjp1O0NXZEgevlwIk5fIlrT14wt8H1 MkgfG4zcDLGzKALqB0VgFD9yIZFqCkl1MLI8OAY3WIH (test code jSAWtA8IvTG2vKUTpiLCcHLq7x0hhmFwrLQPlTUZ8m9bxBJmxhhKaXO6wwv2wrWh9t8gcutZbLQXhAXT tlCLBZJRlQ5JibCmrOl5bhHi6hUayAfumLQQ5Vjh0TH7ohw81xna4fPmjTNAlxtdgOfD9IIvaYVIupki wKFf4MFojOAZeoMM3DJEycJTwV9ClKRMuJW0hciw4UF = 9844) I6AWqqHCPgBdY1SXDggQGrFHVbjVrgGVbqh188IDY0YyMnYM9mO6Ywr7V1mR6deQVqJCUnmSWbKzMxZA Argq6eqWNwIQism4IpETC2jpL2dQCypHYtKCIyEH12Xzile0IcNjjmCQU4GNTttqDul4Rpq6vlFwWftc HvU5poY8YpZMVcHLMmJYKrClUhsrVvy8Mta1NfvUBjg Rm9g1phUPFaOYNwcOzuq6aeHJZ4VNNjL2S3sPFpc6inXTbzBQNdqOH0rcI5OGTmtVSsG8TboF7bRGQxP E9mnhw7c5rpQMZ8ECvjKBUaBzZ6spY3ALXmaMTlGAFtxOqhNOlfr955GTI3YbEnIKUto7YqI6KorPcgE 71fhItkT24sPZMygUauvA2trFqshX8rJuPkWyTwKQad gLqwqGIlftjvTUmycvA9VXktuuwjZWMxKUzgY3reRgSjMTIbwLhvVHoym0CbACWmLFJbBlqrxtU3LIVU p49bWUWfy5HjXBQyfV4yaCArRQzaexDslSD2NSmqacWsCfFkabDkQSBtnD3dTLGbNW6cPLWmrjFmma8s urLuCYKbKXPeD1FvbrczuQzfdqNqHZSpza1guiIhLDK 2PNNAKD5YTQPpRJTtf25dDGAcxVyxmX9hsLSjcdPeFOUnd1FhlS2jmTJDYMNrK1jwSX2cBTdnu3EvjMG nnJNmtVZ2NWYdw5SxSqWdfrCnxYAhxBLjR7LacEqnU4exESYuEWClbbSnjDQga4JbEBDinBC8eQPyAO4 MPqOIh77gJTXcQCOYznUbADKbhEfpsUP9hbO6qO1qVa NYYyPigVJfqSFjHlsaETBak134xe4xuoJ9XKYpBBRsenpip1ShOYDpFIXapS39GCQxHSLhsl0lyzfzwR JsmpNfP4Hlnud5gK0cYHNsHTrhFKTtGIFdMzGszUTwViPtCeTrbAbelUpmZOcmYcHdAPSfRZqnX2inGh FcZnMyMlxwYXJ9 MD MartinezUS HEAD NECK SOFT [id number] 19:54:15No adenopathy. 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 No worrisome parotid nodules.MD MartinezCT Chest without [id number] 13:56:18* Small bilateral pleural effusions. Stable cardiomegaly.* Small nonspecific lung nodules are stable. No new nodules.Interface, Radiology Results In - 07/15/2020 8:58 AM CDT FULL RESULT:Examination: CT CHEST WO CONTRAST, 07/15/2020 8:36 AMClinical History: Malignant melanoma of scalp and neckIndication: assess for disease progression; hx of melanomaComparison: CT 01/15/2020.Technique: CT of the chest was performed without intravenous contrast.Findings:Small nonspecific nodules are stable (for example images 29, 31 and 72 series 302). No new or enlarging lung nodules. The central airways are patent.Small bilateral pleural effusions. Biatrial enlargement as before. No pericardial effusion. Aortic and coronary artery calcification. Mild calcification of the aortic valve and mitral annulus. Pacemaker lead is terminating in the right ventricle.Small mediastinal lymph nodes are stable, likely reactive. No new lymphadenopathy.Gallbladder is surgically absent. Stable small hypodensity in the liver, likely a cyst. Adrenals are unremarkable.No suspicious skeletal lesions. Degenerative disease of the spine.IMPRESSION:* Small bilateral pleural effusions. Stable cardiomegaly.* Small nonspecific lung nodules are stable. No new nodules.MD MartinezFractionated [id number] 12:50:16 Test Item Value Reference Range Interpretation Comments Bili Total (test code 1.6 mg/dL See_Comment H Indocy anine Green = 5096) (ICG) may cause falsely elevate d bilirubin resul ts. Total and direc t bilirubin must not be measured from s amples containing indo cyanine green. False el evation of total biliru bin can be seen in magdaleno ents with IgG concentrations above 28 g/L.Testing Performed at [facility] Care [facility], [address], [place] [address] [Automat ed message] The sy stem which generated this result transmit reynaldo reference range : <=1.2. The refe rence range was not u sed to interpret this result as normal/abnor mal. Bili Direct (test code 0.4 mg/dL See_Comment H Indoc yanine Green = 5094) (ICG) may cause falsely elevate d bilirubin resul ts. Total and direc t bilirubin must not be measured from s amples containing indo cyanine green. Testing Performed at [facility], [address], [place] [address] [Automat ed message] The sy stem which generated this result transmit reynaldo reference range : <=0.3. The refe rence range was not u sed to interpret this result as normal/abnor mal. Bili Indirect (test 1.2 mg/dL 0.0-0.9 H Testing Performed at code = 5095) [facility] Lab [facility], [address], [place] [address] Lab Interpretation Abnormal (test code = 58009-5) MD MartinezGlomerular Filtration [id number] 12:50:15 Test Item Value Reference Range Interpretation Comments eGFR-AA (test code 95 See_Comment Normal eG FR >= 60 mL/min/1.73 = 8062) m2 Note: The eG FR is calculated usin g the CKD-EPI equation. The e GFR declines with age. eGFR <60 mL/min/1.73 m2 is considered as "decreased". This equation should only be used for patients 18 and older. According to e [employer] on's Kidney Disease Outcome Quality Initiative (KDO QI) classification and 2012 Kidney Disease Improving Global Outcomes (KDIGO) Clinical Practi ce Guideline, the stage of CK D should be categorized bas ed on estimated GFR. Stage Description GFR mL/min/1.73 m21 Normal or high GFR >=902 Mildly decrease d GFR 60-893a M ildly to moderately decr eased GFR 45-593b Moderat lalo to severely decrea sed GFR 30-444 Severely decreased GFR 15-295 Kid rishi failure <15 Testing Performed at [facility] Lab [facility], [address], [place], [place] [address] [Automated message] The sy stem which generated this result transmitted ref erence range: >=60 mL/min/1.7 3 sq. m. The reference range was not used to interpret is result as normal/abnormal . eGFR-SATINDER (test code 82 See_Comment Normal e GFR >= 60 mL/min/1.73 = 8063) m2 Note: The eG FR is calculated usin g the CKD-EPI equation. The e GFR declines with age. eGFR <60 mL/min/1.73 m2 is considered as "decreased". This equation should only be used for patients 18 and older. According to th e National [employer] on's Kidney Disease Outcome Quality Initiative (KDO QI) classification and 2012 Kidney Disease Improving Global Outcomes (KDIGO) Clinical Practi ce Guideline, the stage of CK D should be categorized bas ed on estimated GFR. Stage Description GFR mL/min/1.73 m21 Normal or high GFR >=902 Mildly decrease d GFR 60-893a M ildly to moderately decr eased GFR 45-593b Moderat lalo to severely decrea sed GFR 30-444 Severely decreased GFR 15-295 Kid rishi failure <15 Testing Performed at [facility] Lab [facility], [address], [place], [place] [address] [Automated message] The sy stem which generated this result transmitted ref erence range: >=60 mL/min/1.7 3 sq. m. The reference range was not used to interpret th is result as normal/abnormal . MD MartinezTotal [id number] 12:50:14 Test Item Value Reference Range Interpretation Comments Total Protein (test 7.0 g/dL 6.4-8.3 Testing Performed at [facility] code = 7649) Lab [facility], [address], [place] [address] MD [id number] 12:50:13 Test Item Value Reference Range Interpretation Comments LDH (test code = 209 U/L 135-225 Results gre ater than 1651 6111) U/L may not be reliable due to matrix effec t with extended diluti on as it exceeds the man ufacturer s recommended l imit. Caution should be exercised when interpreti ng such values and done in conjunction wit h clinical context. Testin g Performed at [facility] Lab Ambu latory [facility], [address], [address], [place] [address] MD MartinezCalcium [id number] 12:50:12 Test Item Value Reference Range Interpretation Comments Calcium Lvl (test 9.7 mg/dL 8.4-10.2 Testing Pe rformed at code = 5258) [facility], [address], [address], [place], [place] [address] MD MartinezAlkaline [id number] 12:50:11 Test Item Value Reference Range Interpretation Comments Alk Phos (test code = 96 U/L 40-129 Testin g Performed at [facility] 8665) Lab [facility], [address] [place] [address] [address]vd, [address], [place] [address] MD MartinezAlbumin [id number] 12:50:10 Test Item Value Reference Range Interpretation Comments Albumin Lvl (test code 4.1 See_Comment Testi ng Performed at [facility] = 5927) Lab [facility] [employer] [facility], [address], [place] [address] [Automated mess age] The system which ge nerated this result tra nsmitted reference range : 3.5 - 5.2 gm/dL. The refe rence range was not used to interpret this result as normal/abnormal . MD MartinezAspartate [id number] 12:50:09 Test Item Value Reference Range Interpretation Comments AST (test code = 29 U/L See_Comment Testing Per formed at [facility] 4731) Lab [facility] [employer] [facility], [address], [place] [address] [Automated mess age] The system which ge nerated this result transmit reynaldo reference range : <=40. The reference range was not used to interpr et this result as jermain l/abnormal. MD [id number] 12:50:08 Test Item Value Reference Range Interpretation Comments ALT (test code = 28 U/L See_Comment Testing Per formed at [facility] 4705) Lab [facility] [employer] [facility], [address], [place] [address] [Automated mess age] The system which ge nerated this result transmit reynaldo reference range : <=41. The reference range was not used to interpr et this result as jermain l/abnormal. MD MartinezElectrolyte [id number] 12:50:07 Test Item Value Reference Range Interpretation Comments Sodium Lvl (test code = 142 See_Comment Test ing Performed at 7386) [facility], [address], [place] [address] [Automate d message] The sy stem which generated this result transmit reynaldo reference range : 136 - 145 mEq/L. Th e reference range was not used to int erpret this result as normal/abnormal . Potassium Lvl (test code 4.7 See_Comment Donta ting Performed at = 6854) [facility] Lab Ambulat ory Care [facility], [address], [place] [address] [Automate d message] The sy stem which generated this result transmit reynaldo reference range : 3.5 - 5.1 mEq/L. Th e reference range was not used to int erpret this result as normal/abnormal . Chloride (test code = 106 See_Comment Testin g Performed at 5279) [facility] Lab [facility], [address], [address], [place] [address] [Automate d message] The sy stem which generated this result transmit reynaldo reference range : 98 - 107 mEq/L. The reference range was not used to int erpret this result as normal/abnormal . CO2 (test code = 5227) 30 See_Comment H Testi ng Performed at [facility] Lab [facility], [address], [address], [place] [address] [Automate d message] The sy stem which generated this result transmit reynaldo reference range : 22 - 29 mEq/L. The reference range was not used to int erpret this result as normal/abnormal . Anion Gap (test code = 6 See_Comment Testi ng Performed at 9325) [facility] Lab [facility], [address], [address], [place] [address] [Automate d message] The sy stem which generated this result transmit reynaldo reference range : 4 - 14 mEq/L. The reference range was not used to int erpret this result as normal/abnormal . Lab Interpretation (test Abnormal code = 05314-3) MD Martinez.Serum [id number] 12:50:06 Test Item Value Reference Range Interpretation Comments Creatinine (test code 0.80 mg/dL 0.67-1.17 Testin g Performed at = 5399) [facility] Lab [facility], [address], [address], [place] [address] MD [id number] 12:50:05 Test Item Value Reference Range Interpretation Comments BUN (test code = 21 mg/dL 6-23 Testing Per formed at [facility] 5055) Lab [facility], [address] [place] [address] [address], [place] [address] MD MartinezGlucose [id number] 12:50:04 Test Item Value Reference Range Interpretation Comments Glucose Level (test code 110 mg/dL 70-99 H Eff ective 09/28/15, = 5699) the glucose reference inter vals have been updat ed based on [place] an Diabetes Associ ation guidelines (Standards of Medical Care in Diabetes 2016. Diabetes Care 2 016; 39: S13-S22).Fa sting blood glucose:Normal: 70 99 mg/dLImpaire d fasting glucose (increased risk for diabetes or pre-diabetes): 100 125 mg/dLDiabet es mellitus: >/=1 26 mg/dL Random bl ood glucose:Normal: 70 199 mg/dLNote: Random glucose >100 mg/dL is associ ated with increased risk for diabetes Te sting Performed at [facility], [address] [place] [address] [address]vd[address], [place], [place] [address] Lab Interpretation (test Abnormal code = 21698-2) MD Mart[id number] 12:20:17 Test Item Value Reference Range Interpretation Comments Neutrophil % (test code 63.1 % 42.0-66.0 As p art of = 6491) Differential performed at [facility], [address], [facility] [address] Lymphocyte % (test code 21.7 % 24.0-44.0 L = 6194) Monocyte % (test code = 8.4 % 2.0-7.0 H 6422) Eosinophil % (test code 5.9 % 1.0-4.0 H = 5520) Basophil % (test code = 0.6 % 0.0-1.0 5068) IGRE % (test code = 0.3 % 0.0-0.4 IGRE % c ount includes 5958) Metamyelocytes, Myelocytes, and Promyelocytes. As part of Differe ntial performed at [facility], [address] [place] [address], [address], [facility] [place] [address] Neutrophil Abs (test 3.97 K/uL 1.70-7.30 code = 6492) Lymphocyte Abs (test 1.37 K/uL 1.00-4.80 code = 6195) Monocyte Abs (test code 0.53 K/uL 0.08-0.70 = 6423) Eosinophil Abs (test 0.37 K/uL 0.04-0.40 code = 5521) Basophil Abs (test code 0.04 K/uL 0.00-0.10 = 5069) IG Abs (test code = 0.02 K/uL 0.00-0.04 5954) Lab Interpretation Abnormal (test code = 26183-4) MD Martinez.[id number] 12:20:15 Test Item Value Reference Range Interpretation Comments WBC (test code = 8034) 6.3 K/uL 4.0-11.0 RBC (test code = 6932) 4.32 See_Comment L [Aut omated message] The system [employer] generated this result transmitted ref erence range: 4.50 - 6 .00 M/uL. The refer ence range was not u sed to interpret this result as normal/abnor mal. Hgb (test code = 5898) 14.1 See_Comment As pa rt of CBC or as an individual orderable testi ng performed at [facility] Lab [facility], [address], [place] [address] [Automate d message] The sy stem which generated this result transmit reynaldo reference range : 14.0 - 18.0 gm/dL. T he reference range was not used to int erpret this result as normal/abnormal . Hct (test code = 5860) 43.7 % 40.0-54.0 As pa rt of CBC or as an individual orderable testi ng performed at [facility] Lab [facility], [address], [place] [address] MCV (test code = 6222) 101 fL 82-98 H MCH (test code = 6220) 32.6 pg 27.0-31.0 H MCHC (test code = 6221) 32.3 See_Comment [Au tomated message] The system [employer] generated this result transmitted ref erence range: 31.0 - 3 6.0 gm/dL. The refe rence range was not u sed to interpret this result as normal/abnor mal. RDW-SD (test code = 55.0 fL 35.1-46.3 H 6972) RDW-CV (test code = 14.5 % 12.0-15.5 6971) Platelet count (test 143 K/uL 140-440 As part of CBC or as code = 6832) an individual orderable testi ng performed at [facility] Lab [facility], [address], [place] [address] MPV (test code = 6282) 9.0 fL 4.0-10.4 INRBC (test code = 0.0 % See_Comment The INRBC (instrument 5974) NRBC) value ref lects the enumeration of nucleated red b lood cells contained in a 200uL sampleof whole blood analyzed by the instrument. Thi s value maydiffer from the NRBC value repo rted in a manual differential,wh ich is based on a 100 cell differential. A s part of CBC testing performed at [facility] [address], [place] [address] [Automated mess age] The system [employer] generated this result transmitted ref erence range: <=0.0. T he reference range was not used to int erpret this result as normal/abnormal . Lab Interpretation Abnormal (test code = 34663-9) MD MartinezCT Pelvis Wo [id number] 22:56:28EXAMINATION: CT PELVIS WO CONTRAST CLINICAL HISTORY: R10.31 Right lower quadrant pain, Z98.890 Other specified postprocedural states, RLQ PAIN TECHNIQUE:Multiple axial images of the pelvis were obtained without intravenous contrast. The lack of intravenous contrast reduces sensitivity of detecting solid organ disease. Sagittal and coronal computerized reformatted images were also obtained.CT imaging was performed with iterative reconstruction techniques and/or automated exposure control to reduce radiation dose. COMPARISON: None. FINDINGS: 1.There are surgical clips in the right groin compatiblewith history of recent inguinal herniorrhaphy. There is no recurrent hernia. Mild stranding in the subcutaneous tissues along the surgical scar could indicate mild residual inflammation, but there is no fluid collection to suggest hematoma or abscess.2.There is sigmoid diverticulosis. There is no evidence of bowel obstruction or inflammation pelvis. The appendix is normal.3.Urinary bladder is normal.The distal ureters are not dilated.4.Small metal seeds are fiducial markings in the prostate are present.5.There is no significant pelvic lymphadenopathy. There is no ascites.6.Diffuse calcific atherosclerosis is present.7.There are degenerative changes in the spine and hips. IMPRESSION: Expected postoperative changes from recent right inguinal herniorrhaphy. No residual/recurrent hernia. [id number], Radiology Results Incoming - 05/19/2020 5:59 PM CDT EXAMINATION: CT PELVIS WO CONTRASTCLINICAL HISTORY: R10.31 Right lower quadrant pain, Z98.890 Other specified postprocedural states, RLQ PAINTECHNIQUE:Multiple axial images of the pelvis were obtained without intravenous contrast. The lack of intravenous contrast reduces sensitivity of detecting solid organ disease. Sagittal and coronal computerized reformatted images were also obtained.CT imaging was performed with iterative reconstruction techniques and/or automatedexposure control to reduce radiation dose.COMPARISON: None.FINDINGS:1.There are surgical clips in the right groin compatible with history of recent inguinal herniorrhaphy. There is no recurrent hernia. Mild stranding in the subcutaneous tissues along the surgical scar could indicate mild residual inflammation, but there is no fluid collection to suggest hematoma or abscess.2.There is sigmoid diverticulosis. There is no evidence of bowel obstruction or inflammation pelvis. The appendix is normal.3.Urinary bladder is normal. The distal ureters are not dilated.4.Small metal seeds are fiducial markings in the prostate are present.5.There is no significant pelvic lymphadenopathy. There is no ascites.6. Diffuse calcific atherosclerosis is present.7.There are degenerative changes in the spine and hips.IMPRESSION:Expected postoperative changes from recent right inguinal herniorrhaphy. No residual/recurrent hernia.[id number] RNA [Presence] in Respiratory specimen by SATINDER with probe [id number] 19:51:56 Test Item Value Reference Range Interpretation Comments SARS coronavirus 2 RNA Not detected Not-Detected [Presence] in Respiratory specimen by SATINDER with probe detection (test code = 00457-7)
[2020-09-30 09:38] LABS: Absolute Lymphocytes (CBC) 0.8 K/uL (0.7-4.9); Basophils % 0.2 % (0-1.3); Hematocrit 42.7 % (39.6-49.0); MPV 7.7 fL (7.6-11.3); RBC Red Blood Cell Count 4.27 M/uL (4.33-5.43)
[2020-09-30 09:39] LABS: Protime INR 1.37
[2020-09-30 10:11] LABS: ALT/SGPT 67 U/L (12-78); AST/SGOT 52 U/L (15-37); Albumin 3.6 g/dL (3.4-5.0); Alkaline Phosphatase 92 U/L (45-117); BUN Blood Urea Nitrogen 17 mg/dL (7-18); Bicarbonate 27 mmol/L (21-32); Bilirubin Direct 0.6 mg/dL (0-0.2); Bilirubin Total 2.7 mg/dL (0.2-1.0); Glucose Level 103 mg/dL (74-106); NT PRO-BNP 3240 pg/mL (<450); Potassium 3.9 mmol/L (3.5-5.1); Protein, Total 6.9 g/dL (6.4-8.2); Sodium Level 134 mmol/L (136-145); Troponin (Emerg Dept Use Only) < 0.02 ng/mL (0.0-0.045)
[2020-09-30 10:40] LABS: Blood Morphology Comment NOT SEEN (NOT SEEN); Platelet Estimate ADEQ
--- NOTE | 2020-09-30 10:59 | RAD REPORT ---
EXAM DESCRIPTION: Aubree Single View09/30/2020 9:40 am CLINICAL HISTORY: Cough COMPARISON: 2010 FINDINGS: Mild bilateral pulmonary opacities. The heart is moderately enlarged. Pacemaker leads are in place. IMPRESSION: These findings may indicate mild CHF
--- NOTE | 2020-09-30 11:32 | EDPHYS ---
Physician Documentation [facility] Name: Tomy Diggs Age: 84 yrs Sex: Male : 1935 Arrival Date: 09/30/2020 Time: 08:40 Bed 24 Private MD: Jesus Jackson T ED Physician David Martinez HPI: 09/30 10:30 This 84 yrs old Male presents to ER via Wheelchair with complaints of jr8 Shortness Of Breath. 10:30 The patient has shortness of breath at rest. Onset: The symptoms/episode began/occurred jr8 acutely, yesterday. Duration: The symptoms are continuous. The patient's shortness of breath is aggravated by supine position, is alleviated by sitting up. Associated signs and symptoms: Pertinent positives: nausea, vomiting. Severity of symptoms: At their worst the symptoms were mild in the emergency department the symptoms are unchanged. The patient has not experienced similar symptoms in the past. The patient has not recently seen a physician. Historical: - Allergies: 08:50 No Known Allergies; tw2 - Home Meds: 08:48 Pradaxa 150 mg oral cap 1 cap 2 times per day [Active]; tw2 08:54 Lasix 40 mg Oral tab 1 tab once daily [Active]; hydrocodone-acetaminophen 10-750 mg tw2 Oral tab 1 tab every 6 hours [Active]; Flexeril 10 mg Oral tab 1 tab once daily [Active]; Lumigan 0.03 % ophthalmic (eye) drop 1 drop once daily [Active]; Cosopt 22.3-6.8 mg/mL Opht drop 1 drop 2 times per day [Active]; Singulair 10 mg Oral tab 1 tab once daily [Active]; Vitamin D3 5000 int'l units oral daily [Active]; Vitamin C 1,000 mg Oral tab [Active]; Multiple Vitamins oral tab [Active]; zinc gluconate 50 mg oral tab daily [Active]; Lisa Oral [Active]; - PMHx: 08:48 Atrial Fib; Back pain; Cataracts; Hernia; tw2 - PSHx: 08:48 pacemaker; tw2 08:50 Cholecystectomy; tw2 08:54 Melanoma removed; Rt. ear; hemorrhoid sx; hernia repair; back sx; skin cancer; tw2 - Immunization history:: Client reports receiving the 1st dose of the Covid vaccine. - Social history:: Smoking status: Patient denies any tobacco usage or history of. ROS: 10:30 Eyes: Negative for injury, pain, redness, and discharge, ENT: Negative for injury, jr8 pain, and discharge, Neck: Negative for injury, pain, and swelling, Cardiovascular: Negative for chest pain, palpitations, and edema, Back: Negative for injury and pain, MS/Extremity: Negative for injury and deformity, Skin: Negative for injury, rash, and discoloration, Neuro: Negative for headache, weakness, numbness, tingling, and seizure. 10:30 Constitutional: Positive for chills. 10:30 Respiratory: Positive for cough, orthopnea, shortness of breath. 10:30 Abdomen/GI: Positive for nausea, vomiting, Negative for abdominal pain. Exam: 10:30 Constitutional: This is a well developed, well nourished patient who is awake, alert, jr8 and in no acute distress. Eyes: Pupils equal round and reactive to light, extra-ocular motions intact. Lids and lashes normal. Conjunctiva and sclera are non-icteric and not injected. Cornea within normal limits. Periorbital areas with no swelling, redness, or edema. ENT: Nares patent. No nasal discharge, no septal abnormalities noted. Tympanic membranes are normal and external auditory canals are clear. Oropharynx with no redness, swelling, or masses, exudates, or evidence of obstruction, uvula midline. Mucous membranes moist. Neck: Trachea midline, no thyromegaly or masses palpated, and no cervical lymphadenopathy. Supple, full range of motion without nuchal rigidity, or vertebral point tenderness. No Meningismus. Cardiovascular: Regular rate and rhythm with a normal S1 and S2. No gallops, murmurs, or rubs. Normal PMI, no JVD. No pulse deficits. Respiratory: Lungs have equal breath sounds bilaterally, clear to auscultation and percussion. No rales, rhonchi or wheezes noted. No increased work of breathing, no retractions or nasal flaring. Abdomen/GI: Soft, non-tender, with normal bowel sounds. No distension or tympany. No guarding or rebound. No evidence of tenderness throughout. Back: No spinal tenderness. No costovertebral tenderness. Full range of motion. Skin: Warm, dry with normal turgor. Normal color with no rashes, no lesions, and no evidence of cellulitis. MS/ Extremity: Pulses equal, no cyanosis. Neurovascular intact. Full, normal range of motion. Neuro: Awake and alert, GCS 15, oriented to person, place, time, and situation. Cranial nerves II-XII grossly intact. Motor strength 5/5 in all extremities. Sensory grossly intact. Cerebellar exam normal. Normal gait. Vital Signs: 08:45 BP 146 / 81; Pulse 92; Resp 17; Temp 98.1(TE); Pulse Ox 98% on R/A; Weight 77.11 kg (R);tw2 MDM: 09:06 Patient medically screened. [facility] 11:29 Data reviewed: vital signs, nurses notes, lab test result(s), EKG, radiologic studies, jr8 plain films. Data interpreted: Pulse oximetry: on room air is 98 %. Interpretation: normal. 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 ED course: Discussed with patient the presumed new cardiac findings suggestive of worsening or new congestive heart failure. That we would like to put him in for observation have echocardiogram and cardiology centimeters. Patient wants to go home and follow-up at this time. Patient does have Lasix 40 mg at home. Advised him to start taking that again once a day and to see cardiology on Saturday. Patient has established care with Dr. Victor. Patient knows to come back if his shortness of breath were to get worse. Patient at this time is hemodynamically stable with a normal oxygen saturation and no increased work of breathing. No other EKG or cardiac findings on enzymes noted.. 09/30 09:07 Order name: Basic Metabolic Panel 09/30 09:07 Order name: CBC with Diff 09/30 09:07 Order name: LFT's; Complete Time: 10:25 09/30 09:07 Order name: Magnesium; Complete Time: 10:25 09/30 09:07 Order name: NT PRO-BNP; Complete Time: 10:25 09/30 09:07 Order name: PT-INR; Complete Time: 09:46 8 09/30 09:07 Order name: Troponin (emerg Dept Use Only); Complete Time: 10:25 09/30 09:07 Order name: XRAY Chest (1 view); Complete Time: 11:01 09/30 09:07 Order name: EKG; Complete Time: 09:08 09/30 09:08 Order name: Basic Metabolic Panel; Complete Time: 10:25 EDMS 09/30 09:08 Order name: CBC with Automated Diff; Complete Time: 11: EDMS 09/30 10:40 Order name: Manual Differential; Complete Time: 11: EDMS 09/30 11:23 Order name: SARS-COV-2 RT PCR; Complete Time: 11:31 EDMS 09/30 09:07 Order name: Cardiac monitoring; Complete Time: 09:08 09/30 09:07 Order name: EKG - Nurse/Tech; Complete Time: 09:09/30 09:07 Order name: IV Saline Lock; Complete Time: 09:09/30 09:07 Order name: Labs collected and sent; Complete Time: 09:09/30 09:07 Order name: O2 Per Protocol; Complete Time: :09/30 09:07 Order name: O2 Sat Monitoring; Complete Time: : Administered Medications: No medications were administered Disposition: 16:04 Co-signature as Attending Physician, David Martinez MD I agree with the assessment and lidia plan of care. Disposition Summary: 09/30/20 11:32 Discharge Ordered Location: Home [facility] Problem: new jr8 Symptoms: have improved jr8 Condition: Stable jr8 Diagnosis - Unspecified combined systolic (congestive) and diastolic (congestive) heart failure jr8 Followup: jr8 - With: Karel Victor MD - When: 2 - 3 days - Reason: Recheck today's complaints, Continuance of care, Re-evaluation by your physician Discharge Instructions: - Discharge Summary Sheet jr8 - Heart Failure, Diagnosis jr8 Forms: - Medication Reconciliation Form jr8 - Thank You Letter jr8 - Antibiotic Education jr8 - Prescription Opioid Use jr8 Signatures: Dispatcher [employer] David Bahena MD MD cha Roszak Hero, PA PA jr8 Yajaira Benz RN RN tw2 Corrections: (The following items were deleted from the chart) 08:57 08:50 PSHx: Melanoma removed; 10:27 09:08 CORONAVIRUS+BRZ ordered. EDMS EDMS
--- NOTE | 2020-09-30 11:32 | ER ---
Nurse's Notes [facility] Name: Tomy Diggs Age: 84 yrs Sex: Male : 1935 Arrival Date: 09/30/2020 Time: 08:40 Bed 24 Private MD: Jesus Jackson T Diagnosis: Unspecified combined systolic (congestive) and diastolic (congestive) heart failure Presentation: 09/30 08:45 Chief complaint: Patient states: last night i couldn't get my breath all night. it kept tw2 waking me up. i couldn't get a dep breath couldn't get it. i thought maybe if i got up it would helped. it seemed like it helped when i sat up. i got a dry cough. i just dont feel good. i am nauseated. and vomited the night before. Chief complaint: Patient states: also diarrhea. Coronavirus screen: diarrhea, difficulty breathing, nausea, vomiting. Ebola Screen: Patient denies travel to an Ebola-affected area in the 21 days before illness onset. Initial Sepsis Screen: Does the patient meet any 2 criteria? No. Patient's initial sepsis screen is negative. Does the patient have a suspected source of infection? No. Patient's initial sepsis screen is negative. Risk Assessment: Do you want to hurt yourself or someone else? Patient reports no desire to harm self or others. Onset of symptoms was September 30, 2020. 08:45 Method Of Arrival: Wheelchair tw2 08:45 Acuity: AMOS 3 tw2 Triage Assessment: 08:49 General: Appears in no apparent distress. slender, well groomed, Behavior is calm, tw2 cooperative, appropriate for age. Pain: Denies pain. Respiratory: Reports shortness of breath at rest on exertion air hunger Onset: The symptoms/episode began/occurred yesterday, the patient has mild shortness of breath. GI: Reports nausea, vomiting. Historical: - Allergies: 08:50 No Known Allergies; tw2 - Home Meds: 08:48 Pradaxa 150 mg oral cap 1 cap 2 times per day [Active]; tw2 08:54 Lasix 40 mg Oral tab 1 tab once daily [Active]; hydrocodone-acetaminophen 10-750 mg tw2 Oral tab 1 tab every 6 hours [Active]; Flexeril 10 mg Oral tab 1 tab once daily [Active]; Lumigan 0.03 % ophthalmic (eye) drop 1 drop once daily [Active]; Cosopt 22.3-6.8 mg/mL Opht drop 1 drop 2 times per day [Active]; Singulair 10 mg Oral tab 1 tab once daily [Active]; Vitamin D3 5000 int'l units oral daily [Active]; Vitamin C 1,000 mg Oral tab [Active]; Multiple Vitamins oral tab [Active]; zinc gluconate 50 mg oral tab daily [Active]; Lisa Oral [Active]; - PMHx: 08:48 Atrial Fib; Back pain; Cataracts; Hernia; tw2 - PSHx: 08:48 pacemaker; tw2 08:50 Cholecystectomy; tw2 08:54 Melanoma removed; Rt. ear; hemorrhoid sx; hernia repair; back sx; skin cancer; tw2 - Immunization history:: Client reports receiving the 1st dose of the Covid vaccine. - Social history:: Smoking status: Patient denies any tobacco usage or history of. Screenin:04 Abuse screen: Denies threats or abuse. Nutritional screening: No deficits noted. tw2 Tuberculosis screening: No symptoms or risk factors identified. Fall Risk Secondary diagnosis (15 points) impaired mobility. Assessment: 09:00 General: Appears in no apparent distress. comfortable, slender, well groomed, Behavior tr6 is calm, cooperative, appropriate for age. Pain: Denies pain. Neuro: No deficits noted. Level of Consciousness is awake, alert, obeys commands. Cardiovascular: Rhythm is atrial fibrillation. Respiratory: Parent/caregiver reports the patient having shortness of breath. GI: No deficits noted. : No deficits noted. EENT: No deficits noted. Derm: No deficits noted. Musculoskeletal: No deficits noted. 10:30 Reassessment: Patient appears in no apparent distress at this time. No changes from tr6 previously documented assessment. Patient and/or family updated on plan of care and expected duration. Pain level reassessed. Patient is alert, oriented x 3, equal unlabored respirations, skin warm/dry/pink. pt walking around hallway with son to prevent getting stiff. 10:38 Respiratory: Airway Respiratory effort is even, unlabored, relaxed, Breath sounds are tr6 clear. Vital Signs: 08:45 BP 146 / 81; Pulse 92; Resp 17; Temp 98.1(TE); Pulse Ox 98% on R/A; Weight 77.11 kg (R);tw2 ED Course: 08:40 Patient arrived in ED. mr 08:40 Jesus Jackson MD is Private Physician. mr 08:48 Triage completed. tw2 08:50 Arm band placed on. tw2 08:52 Placed in gown. Call light in reach. Adult w/ patient. tw2 09:06 Hero Mensah PA is PHCP. jr8 09:06 David Martinez MD is Attending Physician. jr8 09:08 Bed in low position. Side rails up X 1. Warm blanket given. Pillow given. Cardiac mh5 monitor on. Pulse ox on. NIBP on. 09:08 EKG done, by ED staff, reviewed by David Martinez MD. mh5 09:29 Basic Metabolic Panel Sent. mh5 09:29 CBC with Automated Diff Sent. mh5 09:29 Basic Metabolic Panel Sent. mh5 09:29 CBC with Diff Sent. mh5 09:29 LFT's Sent. mh5 09:29 Magnesium Sent. mh5 09:30 NT PRO-BNP Sent. mh5 09:30 PT-INR Sent. mh5 09:30 Troponin (emerg Dept Use Only) Sent. mh5 09:30 Initial lab(s) drawn, by dc, sent to lab. COVID swab sent to lab. Inserted saline lock: 5 20 gauge in right antecubital area, using aseptic technique. Blood collected. 09:39 XRAY Chest (1 view) In Process Unspecified. EDMS 10:38 Laura Love, LINDEN is Primary Nurse. tr6 11:31 Karel Victor MD is Referral Physician. jr8 11:55 No provider procedures requiring assistance completed. IV discontinued, intact, tr6 bleeding controlled, No redness/swelling at site. Pressure dressing applied. Administered Medications: No medications were administered Outcome: 11:32 Discharge ordered by . jr8 11:55 Discharged to home ambulatory, with family, pt refused wheelchair at this time. son to tr6 take pt home. son at bedside 11:55 Condition: stable 11:55 Discharge instructions given to patient, family, Instructed on discharge instructions, follow up and referral plans. Demonstrated understanding of instructions, follow-up care, medications. 12:07 Patient left the ED. tr6 Signatures: Dispatcher [employer] EDMS Janet Mcpherson mr Hero Mensah PA PA jr8 Yajaira Benz RN RN 2 Vivi Linares [facility] Laura Love RN RN tr6 Corrections: (The following items were deleted from the chart) 08:57 08:50 PSHx: Melanoma removed; tw2 2 10:27 09:29 CORONAVIRUS+MR.LAB.BRZ drawn and sent. [address] 12:27 11:55 Discharged to home ambulatory, with family, tr6 tr6
[2020-09-30 12:18] VITALS: BP 146/81; TEMP 98.1; O2SAT 98
== END 2020-09-30 12:07 | disposition home or self-care (01) ==
LOC: ER 08:36
DX: I50.40 Unspecified combined systolic (congestive) and diastolic (congestive) heart failure (principal); Z85.820 Personal history of malignant melanoma of skin; Z95.0 Presence of cardiac pacemaker; I48.91 Unspecified atrial fibrillation; Z20.822 Contact with and (suspected) exposure to COVID-19
CPT/HCPCS: 85025; 80048; 36415; 83735; 85610; 80076; 84484; 83880; 71045; 99284; U0003; 93005

== ENCOUNTER 2022-02-21 15:14 | Emergency (ER) | payer OTHER ==
--- OUTSIDE RECORDS SUMMARY | 2022-02-21 15:19 | XMS REPORT | Clinical Summary ---
:1935 Author Organization [facility] MD [facility] Address [address] [place] [address] Care Team Providers Name Role Phone Eleanor Reyna MD Unavailable Pj Unger NP Unavailable Sonia Camarillo MD Unavailable Ana Johnson MD Unavailable Lukasz Josue MD Unavailable Soraya Momin MD Primary Care Provider Allergies No known active allergies Medications Medication Sig Dispensed Refills Start End Date Status Date multivitamin Take by mouth. 0 Ac tive (THERAGRAN) tab tablet dabigatran etexilate Take 150 mg by 0 Active (PRADAXA) 150 mg mouth twice capsule daily. cholecalciferol, Take by mouth 0 Active vitamin D3, (VITAMIN daily. D3) 5,000 units tab tablet ascorbic acid, Take 1,000 mg 0 A ctive vitamin C, (VITAMIN by mouth C) 1000 mg tablet daily. dorzolamide-timolol Administer 1 0 Active (COSOPT) 2%-0.5% drop to both 8 ophthalmic solution eyes twice daily. amoxicillin-clavulan Take 1 tablet 10 tablet 0 Active ate (AUGMENTIN) 875 (875 mg) by 9 mg-125 mg per mouth twice tabletIndications: daily. Bitten by cat, initial encounter montelukast Take 1 tablet 0 Acti ve (SINGULAIR) 10 mg by mouth 9 tablet daily. fexofenadine HCl Take by mouth 0 Active (SHALA ORAL) as needed. traMADol (ULTRAM) 50 Take 1 tablet 35 tablet 0 Active mg (50 mg) by 0 tabletIndications: mouth every 6 Malignant melanoma (six) hours as of scalp and neck needed for moderate pain. ZINC ORAL Take 50 mg by 0 Active mouth daily. triamcinolone Apply 80 g 5 Active (KENALOG) 0.1% topically to 1 creamIndications: affected Excoriated eczema area(s) twice daily. For red itchy skin on chest magnesium oxide 400 Take 400 mg by 0 Active mg magnesium cap mouth daily. HYDROcodone-acetamin every 6 (six) 0 Active ophen (NORCO) 7.5 hours as 2 mg-325 mg per tablet needed. furosemide (LASIX) Take 40 mg by 0 Active 40 mg tablet mouth daily. Lumigan 0.01 % Administer 1 0 Ac tive ophthalmic drops drop to both 2 eyes at bedtime. mupirocin Apply 30 g 4 Active (BACTROBAN) 2% topically to 2 ointmentIndications: affected Open wound of skin area(s) 3 of nose <Initial> (three) times a day. cyclobenzaprine Take 10 mg by 0 04/14/19 Discontinued (FLEXERIL) 10 mg mouth as 22 (Di scontinued by tablet needed. another clinician) bimatoprost Administer to 0 10/21/19 Disc ontinued (LUMIGAN) 0.03 % both eyes at 22 (Dose ophthalmic drops bedtime. adj ustment) HYDROcodone-acetamin Take 1 tablet 0 04/14 Discontinued ophen (NORCO) 10 by mouth every 22 (Discontinued by mg-325 mg per tablet 8 (eight) another hours as clinician) needed. Back pian furosemide (LASIX) Take 1 tablet 0 0 Discontinued 40 mg tablet by mouth daily 9 22 (N ot Applicable) as needed. Has not taken recently senna-docusate Take 1 tablet 0 07/15/19 D iscontinued (sennosides-docusate by mouth 3 22 (Not Applicable) sodium) 8.6 mg-50 mg (three) times tablet a day as needed. melatonin 3 mg Take 10 mg by 0 07/15/19 D iscontinued tablet mouth nightly 22 (Not A pplicable) as needed. Active Problems Problem Noted Date Elevated total bilirubin 07/14/2021 Last Assessment & Plan: Formatting of th is note is different from the original. TMP TXN RXN INTERP Component Value Date/Time BILITOT 1.5 (H) 12/29/2021 07:30 AM BILITOT 1.6 (H) 07/14/2021 07:29 AM BILIDIR 0.4 (H) 12/29/2021 07:30 AM BILIDIR 0.4 (H) 07/14/2021 07:29 AM BILIINDIRECT 1.1 (H) 12/29/2021 07:30 A M BILIINDIRECT 1.2 (H) 07/14/2021 07:29 A M Chronic and stable. Continue to monitor. Chronic back pain 07/14/2021 Last Assessment & Plan: Formatting of th is note might be different from the original. Continue with [place] as needed. Continue to monitor. Dyspnea 07/15/2020 Last Assessment & Plan: Formatting of th is note might be different from the original. Perhaps secondary to his heartburn, advi sed to follow up with cardiology Liver function tests abnormal 01/15/2020 Last Assessment & Plan: Formatting of th is note might be different from the original. Recommend patient continue to follow up with PCP for evaluation and management. Patient asymptomatic at this time. Encounter for follow-up examination after completed tr eatment for 09/11/2019 malignant neoplasm Thyroid disorder screening 03/31/2019 Last Assessment & Plan: Formatting of th is note might be different from the original. Monitor on follow up. Encounter for other preprocedural examination 03/09/19 Overview: Outside records received and sent for ne annin. Last Card progress note 09/23/18: A-fib stable, rate controlled. Anticoagu lation is adequate. Continue current medical therapy Edema - improved. No changes made to pre sent regimen HTN- stable, reasonable well-controlled. No changes to present regimen 2. STRESS test 05/27/12: Normal myocardia l perfusion, not gated due to A-fib 3. ECHO 05/26/12: EF 50-55%, dilated LA, RA, dilated aorta, LVH, A fib, trace AR, MR, IN, poor LVC, mild TR, mild PHTN Hypertension 03/09/2019 Overview: Formatting of this note is dif ferent from the original. BP Readings from Last 3 Encounters: 03/09/19 132/75 02/23/19 149/73 11/21/18 147/75 Last Assessment & Plan: 158/77 in clinic today. Will continue to monitor with routine BP evaluations. Atrial fibrillation 03/09/2019 Overview: Rate controlled. Asymptomatic. On antico agulation. EKG today 03/09/2019: Atrial fibrillation, rate 64 . Abnrm T, consider ischemia, anterolate ral lds Followed by outside buttonholer Dr Donavan Fairchild in [place], [place] ([phone]). Sees him q6mths, last visit was 10/2018. Pt does not recall having a recent stress or echo over the last couple of yea rs. Reports 10/2018 he was seen for RLE e jennifer. Was placed on lasix and potassium was added to his losartan. He was also placed on sodium restriction and edema resolved. None noted today. Last Assessment & Plan: Patient had a pacemaker inserted in August 23. He states he has been feeling much better since then. Follow up in 3 months with local buttonholer. Current use of anticoagulant 03/09/2019 Overview: On pradaxa for A-fib. Pt unsure when exa ctly to hold so he did not take it this morning. LD was 03/08/2019 PM. To see IMPAC today. Neuropathy 03/09/2019 Overview: jake feet, LLE, on gabapentin, followed b y outside neurologist Ex-smoker 03/09/2019 Overview: Remote hx, quit 38 yrs ago Sleep apnea 03/09/2019 Overview: Not using CPAP. Allergic rhinitis 03/09/2019 Overview: On shala and singulair daily. Had asth ma as a child, but denies any issues as an adult. 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 The CT imaging study was reviewed today with result interpretation as indicated, I personally reviewed the images and agree that there is no definite evidence of disease recurrence/metastases. Lab resul ts were reviewed and all are within acce ptable parameters. Please refer to [facility] for full detailed labs and imaging report. US will be completed after this visit and we will call him next week for result review. The patient will continue in ob servation and will return to clinic in 6 months if US shows no evidence of disease recurrence. Patient will continue follow up with Dermatology in the interim. Actinic keratosis 03/07/2015 Squamous cell carcinoma 03/07/2015 Malignant melanoma of scalp and neck Cancer Staging: Clinical: Stage Unknown (cT3b, cNX, cM0) - Unsigned Pathologic: Stage IIB (pT3b, pN0, cM0) - Unsigned Last Assessment & Plan: Formatting of is note might be different from the original. The patient's scan is negative for recur rence/metastatic disease. He is doing well on observation. Patient will RTC in 6 months with restag ing scans, labs, and follow up. Patient encouraged to follow-up with estela matology and continue self skin and lamin exams. Patient to notify us of any changes to current health status. Encounters Date Type Specialty Care Team Description 02/12/2022 Telephone Dermatology Shannan Agustin MD 02/09/2022 Procedure visit Dermatology Ana Johnson Basal c ell carcinoma of skin of left upper limb, including shoulder (Primary Dx); Basal cell carc inoma of other specified sites of skin 02/09/2022 Travel 01/10/2022 Orders Only Dermatology Abhishek Shukla Basal cell carcinoma of MD other specified sites of skin (Primar y Dx) 01/10/2022 Telephone Dermatology Abhishek Shukla MD 12/29/2021 Office Visit Melanoma Ernie Rah Ka Encounter f or follow-up examination after completed treatment for malignant neoplasm (Primary Dx); MD Annette Personal histor y of malignant melanoma of skin; Malignant melan anju of scalp and neck; Elevated total bilirubin 12/29/2021 Office Visit Dermatology Ana Johnson, Open wound of skin of nose <Initial> (Primary Dx); Personal histor y of malignant melanoma of skin; Personal histor y of other malignant neoplasm of skin; Actinic keratos is; Melanocytic nev us of trunk; Seborrheic bre tosis; Neoplasm of unc ertain behavior of skin 12/29/2021 Ancillary Procedure Radiology Huber Mao APN Perso nal history of malignant melanoma of skin; Malignant melan anju of scalp and neck 12/29/2021 Hospital Encounter Lab Huber Mao APN Person al history of malignant melanoma of skin; Malignant melan anju of scalp and neck; Elevated total bilirubin 12/29/2021 Travel 11/17/2021 Office Visit Dermatology Ana Johnson, Excoriated eczema (Primary Dx); Squamous cell c arcinoma of skin of right lower limb, including hip; Personal histor y of malignant melanoma of skin; Personal histor y of other malignant neoplasm of skin; Actinic keratos is; Seborrheic bre tosis; Melanocytic nev us of trunk 11/17/2021 Travel 10/23/2021 Telephone Dermatology Suhail Vivas MD 10/20/2021 Office Visit Dermatology Ana Johnson, Melanocyti c nevus of trunk (Primary Dx); Malignant melan anju of scalp and neck; Neoplasm of unc ertain behavior of skin; Personal histor y of malignant melanoma of skin; Personal histor y of other malignant neoplasm of skin; Seborrheic bre tosis; Excoriated ecze ma; Sebaceous cyst; Actinic keratos is 10/20/2021 Telephone Dermatology Suhail Vivas MD 10/20/2021 Travel 07/21/2021 Office Visit Dermatology Ana Johnson, Melanocyti c nevus of trunk (Primary Dx); Malignant melan anju of scalp and neck; Multiple actini c keratoses; Seborrheic bre tosis; Senile angioma; Personal histor y of malignant melanoma of skin; Personal histor y of other malignant neoplasm of skin; Sebaceous cyst; Actinic keratos is; Lentigo 07/21/2021 Travel 07/14/2021 Office Visit Melanoma Rah Klein Encounter f or follow-up examination after completed treatment for malignant neoplasm (Primary Dx); MD Annette Personal histor y of malignant melanoma of skin; Elevated total bilirubin; Malignant melan anju of scalp and neck; Chronic back pa in 07/14/2021 Ancillary Procedure Radiology Rah Klein Pers onal history of MD Annetet malignant melan anju of skin 07/14/2021 Ancillary Procedure Radiology Rah Klein Pers onal history of MD Annette malignant melan anju of skin 07/14/2021 Hospital Encounter Lab Rah Klein Perso nal history of MD Annette malignant melan anju of skin 07/14/2021 Travel 04/14/2021 Office Visit Dermatology Ana Johnson, Excoriated eczema (Primary Dx); Malignant melan anju of scalp and neck; Multiple actini c keratoses; Melanocytic nev us of trunk; Seborrheic bre tosis; Personal histor y of other malignant neoplasm of skin; Personal histor y of malignant melanoma of skin; Actinic keratos is 04/14/2021 Travel after 02/21/2021 Immunizations Name Administration Dates Next Due In [employer] SARS-CoV-2 Vaccination 05/13/2020 Surgical History Surgery Date Site/Laterality Comments SKIN SURGERY [id number] CHOLECYSTECTOMY 03/04/2008 - 03/03/2009 BACK SURGERY 03/04/1991 - 03/03/1992 BACK SURGERY 03/04/1990 - 03/03/1991 HEMORRHOIDECTOMY 03/04/1977 - 03/03/1978 BACK SURGERY 03/04/1972 - 03/03/1973 IN EXCISION MALIGNANT LESION 03/12/2019 Right Pro cedure: EXCISION OF S/N/H/F/G 0.6-1.0 CM MALIGNANT L ESION OF SCALP; Surgeon: Lukasz Josue MD; Loc ation: MAIN OR; Service : [facility] - [facility]EC[facility] Medical devices from this surgery are in the Medical Devices section. IN BX/EXC LYMPH NODE OPEN 03/12/2019 Axilla/Right Proced ure: SENTINEL DEEP AXILLARY NODE NODE BIOPSY - Neck; Surgeon: Lukasz Josue MD; Locat ion: MAIN OR; Service : [facility] - [facility]K [facility] Medical devices from this surgery are in the Medical Devices section. IN SUB GRFT F/S/N/H/F/G/M/D 03/12/2019 Right Proc edure: APPLICATION <100SQ CM 1ST 25 SQ CM OF SKIN S UBSTITUTE GRAFT TO SCALP; Surgeon: Lukasz Josue MD; Locat ion: MAIN OR; Service : [facility] - HEAD [facility]ECK [facility] Medical devices from this surgery are in the Medical Devices section. SKIN CANCER EXCISION HERNIA REPAIR 03/04/1982 - 1982 and 1989, 03/03/1983 scheduled for ri ght inguinal hernia repair 04/16/19 PROSTATE BIOPSY 03/04/2016 - 03/03/2017 CARDIAC PACEMAKER PLACEMENT 08/24/2019 Medical History Medical History Date Comments Basal cell carcinoma of back Prostate cancer 2016 sp XRT (seed) Squamous cell carcinoma Atrial fibrillation 2009 found on EKG. denies sx. denies electrical cardiover uriel Hypertension 2013 Environmental allergy Asthma childhood Melanoma in situ Malignant melanoma of head and neck Family History Medical History Relation Name Comments Colon cancer Brother Heart failure Mother Diabetes Neg Hx Heart disease Neg Hx Hypertension Neg Hx Stroke Neg Hx VTE Neg Hx Relation Name Status Comments Brother (Age 64) Mother Social History Tobacco Use Types Packs/Day Years Used Date Smoking Tobacco: Former Cigarettes 03 28 Quit : 1981 Smokeless Tobacco: Never Alcohol Use Standard Drinks/Week Comments Yes 0 (1 standard drink = 0.6 oz pure alcoho l) occ beer with dinner Sex Assigned at Date Recorded Male 03/04/2019 10:53 AM [employer] Job Start Date Occupation Industry Not on file Not on file Not on file COVID-19 Exposure Response Date Recorded In the last 10 days, have you been in contact with No / Unsu re 02/09/2022 8:58 AM [employer] someone who was confirmed or suspected to have Coronavirus/COVID-19? Obstetrics History Last Filed Vital Signs Vital Sign Reading Time Taken Comments Blood Pressure 146/84 02/09/2022 12:10 PM [employer] Pulse 72 02/09/2022 12:10 PM [employer] Temperature 36.8 C (98.2 F) 12/29/2021 9:13 AM CDT Respiratory Rate 18 12/29/2021 9:13 AM CDT Oxygen Saturation 97% 02/09/2022 12:10 PM [employer] Inhaled Oxygen Concentration - - Weight 78 kg (171 lb 15.3 oz) 12/29/2021 9:13 AM CDT Height - - Body Mass Index 23.32 03/09/2019 2:24 PM [employer] Plan of Treatment Date Type Specialty Care Team Description 05/04/2022 Follow-Up Dermatology Ana Johnson MD [address] [address] 06/29/2022 Appointment Lab [facility] [address] [place], [place] [address] (Wo rk) 06/29/2022 Ancillary Procedure Radiology Daylin NgoNORMA [address] [place], [place] [address] (Wo rk) 06/29/2022 Follow-Up Dermatology Ana Johnson MD [address] [address] 06/29/2022 Ancillary Procedure Radiology [facility] [address] [place], [place] [address] (Wo rk) 06/29/2022 Follow-Up Melanoma Rah Klein MD [address] [place], [place] [address] (Wo rk) Health Maintenance Due Date Last Done Comments COVID-19 Vaccination (2 - Booster for Carlee series) 07/08/2020 05/13/2020 Medical Devices Implanted Type Area Used Car Make Ready Worker Device Shelf Model / Identifier Expiration Serial / Date Lot Bilayer Wound Dressing 2?X2? - [id number] Skin/Tis Right: [employer] 12/01/2020 BMW-2020 / Implanted: Qty: 1 on 03/12/2019 by Lukasz Josue MD at [facility] [employer]IF[employer]CIENC[employer] / [id number] [id number] Procedures Procedure Name Priority Date/Time Associated Comments Diagnosis PATHOLOGY BIOPSY Routine 02/09/2022 12:02 Basal cell Results for this INTERPRETATION PM [employer] carcinoma of other procedu re are in specified sites of the resul ts skin section. PATHOLOGY BIOPSY Routine 12/29/2021 9:59 Personal history Resu lts for this INTERPRETATION AM CDT of malignant procedure are in melanoma of skin the results Open wound of skin section. of nose <Initial> CT CHEST WO CONTRAST Routine 12/29/2021 8:49 Personal history Results for this AM CDT of malignant procedure are i n melanoma of skin the results Malignant melanoma section. of scalp and neck FRACTIONATED BILIRUBIN Routine 12/29/2021 7:30 Personal histor y Results for this AM CDT of malignant procedure are i n melanoma of skin the results Elevated total section. bilirubin Malignant melanoma of scalp and neck TOTAL PROTEIN Routine 12/29/2021 7:30 Personal history Results for this AM CDT of malignant procedure are i n melanoma of skin the results Elevated total section. bilirubin Malignant melanoma of scalp and neck ASPARTATE Routine 12/29/2021 7:30 Personal history Results for this AMINOTRANSFERASE AM CDT of malignant procedure a re in melanoma of skin the results Elevated total section. bilirubin Malignant melanoma of scalp and neck ALANINE AMINOTRANSFERASE Routine 12/29/2021 7:30 Personal hist ory Results for this AM CDT of malignant procedure are i n melanoma of skin the results Elevated total section. bilirubin Malignant melanoma of scalp and neck ALKALINE PHOSPHATASE Routine 12/29/2021 7:30 Personal history Results for this AM CDT of malignant procedure are i n melanoma of skin the results Elevated total section. bilirubin Malignant melanoma of scalp and neck ALBUMIN LEVEL Routine 12/29/2021 7:30 Personal history Results for this AM CDT of malignant procedure are i n melanoma of skin the results Elevated total section. bilirubin Malignant melanoma of scalp and neck CALCIUM LEVEL TOTAL Routine 12/29/2021 7:30 Personal history R esults for this AM CDT of malignant procedure are i n melanoma of skin the results Elevated total section. bilirubin Malignant melanoma of scalp and neck .GLOMERULAR FILTRATION Routine 12/29/2021 7:30 Personal histor y Results for this RATE AM CDT of malignant procedure are i n melanoma of skin the results Elevated total section. bilirubin Malignant melanoma of scalp and neck SERUM CREATININE Routine 12/29/2021 7:30 Personal history Resu lts for this AM CDT of malignant procedure are i n melanoma of skin the results Elevated total section. bilirubin Malignant melanoma of scalp and neck ELECTROLYTE PANEL Routine 12/29/2021 7:30 Personal history Res ults for this AM CDT of malignant procedure are i n melanoma of skin the results Elevated total section. bilirubin Malignant melanoma of scalp and neck BLOOD UREA NITROGEN Routine 12/29/2021 7:30 Personal history R esults for this AM CDT of malignant procedure are i n melanoma of skin the results Elevated total section. bilirubin Malignant melanoma of scalp and neck GLUCOSE LEVEL Routine 12/29/2021 7:30 Personal history Results for this AM CDT of malignant procedure are i n melanoma of skin the results Elevated total section. bilirubin Malignant melanoma of scalp and neck MANUAL DIFFERENTIAL Routine 12/29/2021 7:30 Personal history R esults for this AM CDT of malignant procedure are i n melanoma of skin the results Malignant melanoma section. of scalp and neck Results CBC Routine 12/29/2021 7:30 Personal history Results for this AM CDT of malignant procedure are i n melanoma of skin the results Malignant melanoma section. of scalp and neck LACTATE DEHYDROGENASE Routine 12/29/2021 7:30 Personal history Results for this AM CDT of malignant procedure are i n melanoma of skin the results Malignant melanoma section. of scalp and neck COMPREHENSIVE METABOLIC Routine 12/29/2021 7:30 Personal histo ry PANEL AM CDT of malignant melanoma of skin Elevated total bilirubin Malignant melanoma of scalp and neck COMPLETE BLOOD COUNT W/ Routine 12/29/2021 7:30 Personal histo ry DIFFERENTIAL AM CDT of malignant melanoma of skin Malignant melanoma of scalp and neck PATHOLOGY BIOPSY Routine 10/20/2021 9:34 Neoplasm of Results for this INTERPRETATION AM CDT uncertain behavior procedu re are in of skin the results section. US HEAD NECK SOFT TISSUE Routine 07/14/2021 9:43 Personal hist ory Results for this AM CDT of malignant procedure are i n melanoma of skin the results section. CT CHEST WO CONTRAST Routine 07/14/2021 8:35 Personal history Results for this AM CDT of malignant procedure are i n melanoma of skin the results section. FRACTIONATED BILIRUBIN Routine 07/14/2021 7:29 Personal histor y Results for this AM CDT of malignant procedure are i n melanoma of skin the results section. TOTAL PROTEIN Routine 07/14/2021 7:29 Personal history Results for this AM CDT of malignant procedure are i n melanoma of skin the results section. ASPARTATE Routine 07/14/2021 7:29 Personal history Results for this AMINOTRANSFERASE AM CDT of malignant procedure a re in melanoma of skin the results section. ALANINE AMINOTRANSFERASE Routine 07/14/2021 7:29 Personal hist ory Results for this AM CDT of malignant procedure are i n melanoma of skin the results section. ALKALINE PHOSPHATASE Routine 07/14/2021 7:29 Personal history Results for this AM CDT of malignant procedure are i n melanoma of skin the results section. ALBUMIN LEVEL Routine 07/14/2021 7:29 Personal history Results for this AM CDT of malignant procedure are i n melanoma of skin the results section. CALCIUM LEVEL TOTAL Routine 07/14/2021 7:29 Personal history R esults for this AM CDT of malignant procedure are i n melanoma of skin the results section. .GLOMERULAR FILTRATION Routine 07/14/2021 7:29 Personal histor y Results for this RATE AM CDT of malignant procedure are i n melanoma of skin the results section. SERUM CREATININE Routine 07/14/2021 7:29 Personal history Resu lts for this AM CDT of malignant procedure are i n melanoma of skin the results section. ELECTROLYTE PANEL Routine 07/14/2021 7:29 Personal history Res ults for this AM CDT of malignant procedure are i n melanoma of skin the results section. BLOOD UREA NITROGEN Routine 07/14/2021 7:29 Personal history R esults for this AM CDT of malignant procedure are i n melanoma of skin the results section. GLUCOSE LEVEL Routine 07/14/2021 7:29 Personal history Results for this AM CDT of malignant procedure are i n melanoma of skin the results section. MANUAL DIFFERENTIAL Routine 07/14/2021 7:29 Personal history R esults for this AM CDT of malignant procedure are i n melanoma of skin the results section. Results CBC Routine 07/14/2021 7:29 Personal history Results for this AM CDT of malignant procedure are i n melanoma of skin the results section. LACTATE DEHYDROGENASE Routine 07/14/2021 7:29 Personal history Results for this AM CDT of malignant procedure are i n melanoma of skin the results section. COMPREHENSIVE METABOLIC Routine 07/14/2021 7:29 Personal histo ry PANEL AM CDT of malignant melanoma of skin COMPLETE BLOOD COUNT W/ Routine 07/14/2021 7:29 Personal histo ry DIFFERENTIAL AM CDT of malignant melanoma of skin after 02/21/2021 Results Pathology Biopsy Interpretation (02/09/2022 12:02 PM [employer])Only the most recent of 3 resultswithin the time period is included. Component Value Ref Test Analysis Performed Pathologis t Range Method Time At Signature Submitted Basal cell 02/12/2022 [facility] Clinical carcinoma of other 10:52 AM History specified sites of [employer] skin [C44.81] Diagnosis A: Left anterior shoulder, skin ellipse: 02/12/2022 [facility] Electronically SKIN AND SUBCUTANEOUS TISSUE WITH SCAR. BIOPSY SITE CHANGES AND ADJACENT FOCAL BASAL CELL CARCINOMA, SUPERFICIAL PATTERN. 10:52 AM signed by Mickie Hyperplastic actinic keratosis, pigmente d, present at peripheral tissue edges. [employer] MD Yonatan on Incidental seborrheic keratosis and lentigo. 02/12/2022 at Margins of resection appear free of carcinoma. 10:52 AM The scar is present at peripheral tissue edges. Gross A: 02/12/2022 [facility] Description Skin, left anterior shoulder : An unoriented ellipse of mottled dominguez- white skin measuring 4.2 x 1.7 x 1.2 cm. The skin surface displays a pink-red partially healed, linear scar (2.2 x 0.9 cm), which comes 10:52 AM within 0.4 cm from the alvaro in. The specimen is inked, serially breadloafed and entirely submitted. MINE PATROL SECTION CODE: A1-tips (ink s navdeep up); [id number] sections, submitted sequentially. Disclaimer "Some tests 02/12/2022 [facility] reported here may 10:52 AM have been MINE PATROL developed and performance characteristics determined by [facility]. These tests have not been specifically cleared or approved by the U.S. Food and Drug Administration. If applicable, controls were reviewed and showed appropriate reactivity." Specimen Anatomical Collection Method Collection Time Receive d Time (Source) Location / / Volume Laterality Tissue (Skin) 02/09/2022 12:02 02/09/2022 2:37 PM MINE PATROL PM MINE PATROL Ana Johnson MD LAB PATHOLOGY ORDERABLES Performing Organization Address City/State/ZIP Code Phon e Number [facility] [place] [address] [place] [address] Chest without Contrast (12/29/2021 8:49 AM CDT)Only the most recent of2 resultswithin the time period is included. Anatomical Region Laterality Modality Chest Computed Tomography Specimen (Source) Anatomical Collection Method Collection Time Re ceived Time Location / / Volume Laterality 12/29/2021 8:59 AM CDT Impressions 12/29/2021 9:30 AM CDT * Small bilateral nonspecific lung nod ules are stable from May 2019 favoring benign etiology. No new nodules or lymph adenopathy. Narrative 12/29/2021 9:30 AM CDT FULL RESULT: Examination: CT CHEST WO CONTRAST, 12/29 8:49 AM Clinical History: Personal history of ma lignant melanoma of skin Malignant melanoma of scalp and neck Indication: Cancer surveillance, Cancer staging or restaging, assess for disease progression; hx of melanoma Comparison: CT 07/14/2021 Technique: CT of the chest was performed without intravenous contrast. Findings: Scarring in the lung apices. Small lung nodules scattered bilaterally are stable dating back to May 2019 (annotated images series 3). No new suspicious lung nodules. No consolidation. The central airways are patent. Biatrial enlargement. 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 Moderate coronary artery calcifications. Mitral annulus calcification. No intrathoracic lymphadenopathy. No ple ural effusion. The visualized upper abdominal structure s are unremarkable. No suspicious skeletal lesions. Procedure Note Cesar Schneider MD - 12/29/2021 FULL RESULT: Examination: CT CHEST WO CONTRAST, 12/29 8:49 AM Clinical History: Personal history of ma lignant melanoma of skin Malignant melanoma of scalp and neck Indication: Cancer surveillance, Cancer staging or restaging, assess for disease progression; hx of melanoma Comparison: CT 07/14/2021 Technique: CT of the chest was performed without intravenous contrast. Findings: Scarring in the lung apices. Small lung nodules scattered bilaterally are stable dating back to May 2019 (annotated images series 3). No new suspicious lung nodules. No consolidation. The central airways are patent. Biatrial enlargement. 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 Moderate coronary artery calcifications. Mitral annulus calcification. No intrathoracic lymphadenopathy. No ple ural effusion. The visualized upper abdominal structure s are unremarkable. No suspicious skeletal lesions. IMPRESSION: * Small bilateral nonspecific lung nodul es are stable from May 2019 favoring benign etiology. No new nodules or lymphadenopathy. Huber Mao APN IMG CT ORDERABLES .Serum Creatinine (12/29/2021 7:30 AM CDT)Only the most recent of2 resultswithin the time period is included. P athologist Signature Creatinine 0.94 0.67 - 1.17 [facility] mg/dL [facility] Specimen Anatomical Collection Method Collection Time Receive d Time (Source) Location / / Volume Laterality Blood 12/29/2021 7:30 AM 7:56 CDT AM CDT Huber Mao APN LAB BLOOD ORDERABLES Performing Organization Address City/State/ZIP Code Phon e Number [facility] DIAGNOSTIC Unless otherwise noted, [place], [place] [address] CENTER all lab tests performed by: Division of Pathology and Laboratory Medicine [address] [place] (ABNORMAL) .CBC (12/29/2021 7:30 AM CDT)Only the most recent of2 resultswithin the time period is included. Analysis Performed At Patho logist Time Signature WBC 7.1 4.0 - 11.0 [facility] K/uL DI[facility]IC CENTER RBC 4.21 (L) 4.50 - [facility] 6.00 M/uL DIAG[facility]STIC CENTER Hgb 14.2 14.0 - [facility] 18.0 gm/dL DIAGNOSTIC CENTER Hct 42.8 40.0 - [facility] 54.0 % DI[facility]IC CENTER MCV 102 (H) 82 - 98 fL [facility] DIAGNOSTIC CENTER MCH 33.7 (H) 27.0 - [facility] 31.0 pg DIAGNOSTIC CENTER MCHC 33.2 31.0 - [facility] 36.0 gm/dL DIAGNOSTIC CENTER RDW-SD 54.4 (H) 35.1 - [facility] 46.3 fL DIAGNOSTIC CENTER RDW-CV 14.4 12.0 - [facility] 15.5 % DI[facility]IC [facility]ENTER Platelet count 154 140 - 440 [facility] K/uL DIAGNOSTIC CENTER MPV 9.5 4.0 - 10.4 [facility] DIAGNOSTIC CENTER INRBC 0.0 <=0.0 % [facility] DI[facility]IC CENTER Comment: The INRBC (instrument NRBC) value reflec ts the enumeration of nucleated red blood cells contained i n a 200uL sample of whole blood analyzed by the instrumen t. This value may differ from the NRBC value reported in a manual differential, which is based on a 100 cell differentia l. Specimen Anatomical Collection Method Collection Time Receive d Time (Source) Location / / Volume Laterality Blood 12/29/2021 7:30 AM 2 7:41 CDT AM CDT Huber Mao APN LAB BLOOD ORDERABLES Performing Organization Address City/[facility] [place] Phon e Number [facility] DIAGNOSTIC Unless otherwise noted, [address] all lab tests performed by: Division of Pathology and Laboratory Medicine [address] [facility] Glomerular Filtration Rate (12/29/2021 7:30 AM CDT)Only the most recent of2 resultswithin the time period is included. athologist Signature eGFR 79 >=60 MA MD B[place]T mL/min/1.73 DIAGNOSTIC sq. m CENTER Comment: The eGFRcr is calculated with the 2020 KD-EPI creatinine equation using creatinine, patient's age, and sex for adults 18 years of age and older. Other factors, especially muscle mass, may affect accuracy and need to be considered. According to the Kidney Disease: Improvi ng Global Outcomes (KDIGO) CKD Work Group 2012 Clinical Practice Guideline, chronic kidney disease (CKD) is defined as the abnormalities of kidney structure or function, present for more than 3 months, with implications for health. CKD should be c lassified by cause, GFR category, and albuminuria category. KDIGO guidelines provide the following GFR categories Stage Description GFR mL/min/1.73 m2 G1* Normal or high >= 90 G2* Mildly decreased 60-89 G3a Mildly to moderately decreased 45-59 G3b Moderately to severely decreased 30- 44 G4 Severely decreased 15-29 G5 Kidney failure <15 *In the absence of evidence of kidney da mage, neither G1 nor G2 fulfill criteria for CKD. Specimen Anatomical Collection Method Collection Time Receive d Time (Source) Location / / Volume Laterality Blood 12/29/2021 7:30 AM 2 7:56 CDT AM CDT Huber Mao APN LAB BLOOD ORDERABLES Performing Organization Address City/[facility] [place] Phon e Number [facility] DIAGNOSTIC Unless otherwise noted, [address] all lab tests performed by: Division of Pathology and Laboratory Medicine [address] [place] (ABNORMAL) Fractionated Bilirubin (12/29/2021 7:30 AM CDT)Only the most recent of2 resultswithin the time period is included. athologist [facility] Bili Total 1.5 (H) <=1.2 mg/dL [facility] DIAGNOSTIC CENTER Comment: Indocyanine Green (ICG) may cause falsel y elevated bilirubin results. Total and direct bilirubin must not be measured from samples containing indocyanine green. False elevation of total bilirubin can b e seen in patients with IgG concentrations above 28 g/L. Bili Direct 0.4 (H) <=0.3 mg/dL [facility] D IAGNOSTIC CENTER Comment: Indocyanine Green (ICG) may cau se falsely elevated bilirubin results. Total and direct bilirubin must not be measure d from samples containing indocyanine green. Bili Indirect 1.1 (H) 0.0 - 0.9 mg/dL MA MD MCKEON [facility] DIAGNOSTIC CENTER Specimen Anatomical Collection Method Collection Time Receive d Time (Source) Location / / Volume Laterality Blood 12/29/2021 7:30 AM 7:56 CDT AM CDT Huber Mao APN LAB BLOOD ORDERABLES Performing Organization Address City/State/ZIP Code Phon e Number [facility] DIAGNOSTIC Unless otherwise noted, [place] [phone] [address] all lab tests performed by: Division of Pathology and Laboratory Medicine [address] [place] (ABNORMAL) Differential (12/29/2021 7:30 AM CDT)Only the most recent of2 results within the time period is included. athologist [facility] Neutrophil % 59.0 42.0 - [facility] 66.0 % DIAGNOSTIC CENTER Lymphocyte % 26.3 24.0 - [facility] 44.0 % DIAGNOSTIC CENTER Monocyte % 8.7 (H) 2.0 - 7.0 [facility] % DIAGNOSTIC CENTER Eosinophil % 4.9 (H) 1.0 - 4.0 [facility] % DIAGNOSTIC CENTER Basophil % 0.8 0.0 - 1.0 [facility] % DIAGNOSTIC CENTER IGRE % 0.3 0.0 - 0.4 [facility] DIAGNOSTIC CENTER Comment: IGRE % count includes Metamyelo cytes, Myelocytes, and Promyelocytes. Neutrophil Abs 4.21 1.70 - 7.30 K/uL MA MD FRANK JEFFERS [facility] Lymphocyte Abs 1.88 1.00 - 4.80 K/uL MA MD FRANK JEFFERS [facility] Monocyte Abs 0.62 0.08 - 0.70 K/uL MA MD MCKEON [facility] Eosinophil Abs 0.35 0.04 - 0.40 K/uL MA MD FRANK JEFFERS [facility] Basophil Abs 0.06 0.00 - 0.10 K/uL MA MIKE [facility] IG Abs 0.02 0.00 - 0.04 K/uL MA MD [place] Fraga [facility] Specimen Anatomical Collection Method Collection Time Receive d Time (Source) Location / / Volume Laterality Blood 12/29/2021 7:30 AM 2 7:41 CDT AM CDT [facility] BLOOD ORDERABLES Performing Organization Address City/[facility] [place] Phon e Number [facility] DIAGNOSTIC Unless otherwise noted, [address] all lab tests performed by: Division of Pathology and Laboratory Medicine [facility]5 [facility] (ABNORMAL) BUN (12/29/2021 7:30 AM CDT)Only the most recent of2 resultswithin the time period is included. P athologist Signature BUN 28 (H) 6 - 23 [facility] mg/dL [facility] Specimen Anatomical Collection Method Collection Time Receive d Time (Source) Location / / Volume Laterality Blood 12/29/2021 7:30 AM 2 7:56 CDT AM CDT Ngo Le CERTIFIED DETENTION DEPUTY LAB BLOOD ORDERABLES Performing Organization Address City/State/[facility] [place] Phon e Number [facility] DIAGNOSTIC Unless otherwise noted, [address] all lab tests performed by: Division of Pathology and Laboratory Medicine [facility] ALT (12/29/2021 7:30 AM CDT)Only the most recent of2 resultswithin the time period is included. P athologist Signature ALT 28 <=41 U/L [facility] Specimen Anatomical Collection Method Collection Time Receive d Time (Source) Location / / Volume Laterality Blood 12/29/2021 7:30 AM 2 7:56 CDT AM CDT Ngo Le CERTIFIED DETENTION DEPUTY LAB BLOOD ORDERABLES Performing Organization Address City/[facility]/ZIP [facility] Phon e Number [facility] DIAGNOSTIC Unless otherwise noted, [address] all lab tests performed by: Division of Pathology and Laboratory Medicine [address] [place] Aspartate Aminotransferase (12/29/2021 7:30 AM CDT)Only the most recent of2 resultswithin the time period is included. P athologist Signature AST 30 <=40 U/L [facility] Specimen Anatomical Collection Method Collection Time Receive d Time (Source) Location / / Volume Laterality Blood 12/29/2021 7:30 AM 2 7:56 CDT AM CDT Ngo Le CERTIFIED DETENTION DEPUTY LAB BLOOD ORDERABLES Performing Organization Address City/[facility]/ZIP [facility] Phon e Number [facility] DIAGNOSTIC Unless otherwise noted, [address] all lab tests performed by: Division of Pathology and Laboratory Medicine [address] [place] Total Protein (12/29/2021 7:30 AM CDT)Only the most recent of2 resultswithin the time period is included. athologist Signature Total Protein 7.0 6.4 - 8.3 [facility] g/dL [facility] Specimen Anatomical Collection Method Collection Time Receive d Time (Source) Location / / Volume Laterality Blood 12/29/2021 7:30 AM 2 7:56 CDT AM CDT Ngo Le CERTIFIED DETENTION DEPUTY LAB BLOOD ORDERABLES Performing Organization Address City/[facility]/ZIP [facility] Phon e Number [facility] DIAGNOSTIC Unless otherwise noted, [place] [address] [place] all lab tests performed by: Division of Pathology and Laboratory Medicine [address] [place] Alkaline Phosphatase (12/29/2021 7:30 AM CDT)Only the most recent of2 results within the time period is included. P athologist Signature Alk Phos 89 40 - 129 [facility] U/L DIAGNOSTIC CENTER Specimen Anatomical Collection Method Collection Time Receive d Time (Source) Location / / Volume Laterality Blood 12/29/2021 7:30 AM 2 7:56 CDT AM CDT Huber BellN LAB BLOOD ORDERABLES Performing Organization Address [facility] [place] Phon e Number [facility] DIAGNOSTIC Unless otherwise noted, [address] all lab tests performed by: Division of Pathology and Laboratory Medicine [address] [place] [address] LDH (12/29/2021 7:30 AM CDT)Only the most recent of2 resultswithin the time period is included. athologist Signature LDH 207 135 - 225 [facility] U/L DI[facility]IC CENTER Comment: Results greater than 1651 U/L m ay not be reliable due to matrix effect with extended dilution as it exceeds the manu facturer's recommended limit. Caution should be exercised when interpreting such valu es and done in conjunction with clinical context. Specimen Anatomical Collection Method Collection Time Receive d Time (Source) Location / / Volume Laterality Blood 12/29/2021 7:30 AM 2 7:56 CDT AM CDT Huber Mao APN LAB BLOOD ORDERABLES Performing Organization Address [facility] [place] Phon e Number [facility] DIAGNOSTIC Unless otherwise noted, [address] all lab tests performed by: Division of Pathology and Laboratory Medicine [address] [place] [address] (ABNORMAL) Glucose Level (12/29/2021 7:30 AM CDT)Only the most recent of2 resultswithin the time period is included. athologist Signature Glucose Level 100 (H) 70 - 99 [facility] mg/dL DIAGNOSTIC CENTER Comment: Effective 09/28/15, the glucose reference intervals have been updated based on [place] [employer] guidelines (Standards of Medical Care in Diabetes 2016. Diabetes Care 2016; 39: S13-S22). Fasting blood glucose: Normal: 70-99 mg/dL Impaired fasting glucose (increased risk for diabetes or pre-diabetes): 100- 125 mg/dL Diabetes mellitus: >/=126 mg/dL Random blood glucose: Normal: 70-199 mg/dL Note: Random glucose >100 mg/dL is assoc iated with increased risk for diabetes Specimen Anatomical Collection Method Collection Time Receive d Time (Source) Location / / Volume Laterality Blood 12/29/2021 7:30 AM 2 7:56 CDT AM CDT Ngo Le CERTIFIED DETENTION DEPUTY LAB BLOOD ORDERABLES Performing Organization Address City/[facility] [place] Phon e Number [facility] DIAGNOSTIC Unless otherwise noted, [address] all lab tests performed by: Division of Pathology and Laboratory Medicine [address] [place] Calcium Level (12/29/2021 7:30 AM CDT)Only the most recent of2 resultswithin the time period is included. athologist [facility] Calcium Lvl 9.9 8.4 - 10.2 [facility] mg/dL DIAGNOSTIC CENTER Specimen Anatomical Collection Method Collection Time Receive d Time (Source) Location / / Volume Laterality Blood 12/29/2021 7:30 AM 2 7:56 CDT AM CDT Ngo Le CERTIFIED DETENTION DEPUTY LAB BLOOD ORDERABLES Performing Organization Address [facility] [place] Phon e Number [facility] DIAGNOSTIC Unless otherwise noted, [address] all lab tests performed by: Division of Pathology and Laboratory Medicine [facility] [place] Albumin Level (12/29/2021 7:30 AM CDT)Only the most recent of2 resultswithin the time period is included. athologist [facility] Albumin Lvl 4.3 3.5 - 5.2 [facility] gm/dL DIAGNOSTIC CENTER Specimen Anatomical Collection Method Collection Time Receive d Time (Source) Location / / Volume Laterality Blood 12/29/2021 7:30 AM 2 7:56 CDT AM CDT Ngo Le CERTIFIED DETENTION DEPUTY LAB BLOOD ORDERABLES Performing Organization Address City/[facility] [place] Phon e Number [facility] DIAGNOSTIC Unless otherwise noted, [address] all lab tests performed by: Division of Pathology and Laboratory Medicine [address] [place] (ABNORMAL) Electrolyte Panel (12/29/2021 7:30 AM CDT)Only the most recent of2 resultswithin the time period is included. athologist Signature Sodium Lvl 139 136 - 145 [facility] mEq/L DIAGNOSTIC CENTER Potassium Lvl 4.8 3.5 - 5.1 [facility] mEq/L DIAGNOSTIC CENTER Chloride 101 98 - 107 [facility] mEq/L DIAGNOSTIC CENTER CO2 30 (H) 22 - 29 [facility] mEq/L DI[facility]IC CENTER Anion Gap 8 4 - 14 [facility] mEq/L DI[facility]IC CENTER Specimen Anatomical Collection Method Collection Time Receive d Time (Source) Location / / Volume Laterality Blood 12/29/2021 7:30 AM 7:56 CDT AM CDT Ngo Daylin GREEN LAB BLOOD ORDERABLES Performing Organization Address City/State/ZIP Code Phon e Number [facility] DIAGNOSTIC Unless otherwise noted, [place], [place] [address] CENTER all lab tests performed by: Division of Pathology and Laboratory Medicine [address] [facility] US Head Neck Soft Tissue (07/14/2021 9:43 AM CDT) Anatomical Region Laterality Modality Head, Neck Ultrasound Specimen (Source) Anatomical Collection Method Collection Time Re ceived Time Location / / Volume Laterality 07/14/2021 9:30 AM CDT Impressions 07/14/2021 9:59 AM CDT No adenopathy. Narrative 07/14/2021 9:59 AM CDT FULL RESULT: Examination: US HEAD NECK SOFT TISSUE, 9:43 AM Clinical History: Personal history of ma lignant melanoma of skin Indication: Melanoma right posterior aur icular scalp status post wide local excision 2012, right occipital scalp melanoma status post excision and right neck dissection 2019 Comparison: 01/13/2021, 07/15/2020 Technique: Grayscale and color Doppler u ltrasound of the soft tissues of the neck. Findings: There are no suspicious parotid nodules. No adenopathy in the post auricular or suboccipital regions is identified. There is no suspicious adenopathy in the lateral compartment of the neck. No suspicious submandibular, submental, or delphian lymph node is seen. 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 Procedure Note Anna Jain MD - 07/14/2021Fo rmatting of this note might be different from the original. FULL RESULT: Examination: US HEAD NECK SOFT TISSUE, 9:43 AM Clinical History: Personal history of ma lignant melanoma of skin Indication: Melanoma right posterior aur icular scalp status post wide local excision 2012, right occipital scalp melanoma status post excision and right neck dissection 2019 Comparison: 01/13/2021, 07/15/2020 Technique: Grayscale and color Doppler u ltrasound of the soft tissues of the neck. Findings: There are no suspicious parotid nodules. No adenopathy in the post auricular or suboccipital regions is identified. There is no suspicious adenopathy in the lateral compartment of the neck. No suspicious submandibular, submental, or delphian lymph node is seen. 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 IMPRESSION: No adenopathy. 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
--- OUTSIDE RECORDS SUMMARY | 2022-02-21 15:21 | XMS REPORT | Continuity of Care Document ---
:1935 Author Organization Formerly [facility] t Address [address] [place] [address] Care Team Providers Name Role Phone Jesus Jackson MD Primary Care Physician [phone] Shannan Agustin MD Attending Clinician Unavailable Ana Johnson MD Attending Clinician ANA JOHNSON Attending Clinician Unavailable Abhishek Shukla MD Attending Clinician Unavailable Huber Chadwick APN Attending Clinician HUBER CHADWICK Attending Clinician Unavailable Yusra Hopson MD Attending Clinician YUSRA HOPSON Attending Clinician Unavailable Suhail Vivas MD Attending Clinician Unavailable RAH MIR Attending Clinician Unavailable JAYLAN RUANO Attending Clinician Unavailable Stephan Cabezas MD Attending Clinician [phone] RODOLFO MONTEIRO Attending Clinician Unavailable Maylin Sharma MA Attending Clinician Unavailable Noman Medel MD Attending Clinician KIRIT MIN Attending Clinician Unavailable MICHELLE TYLER Attending Clinician Unavailable TAMAR HARPER Attending Clinician Unavailable Payers Payer Name Policy Type Policy Effective Date Expiration Date Sour ce Number AETNA MEDICAREAETNA [id number] 2013 [place] MEDICARE HMO/PPO 00:00:[id number] Problems Condition Condition Condition Status Onset Resolution Last Treating Co mments Source Name Details Category Date Date Treatment Clinician Date Elevated Elevated Disease Active Last Unive rs total total 5-13 Assessmen ity of bilirubin bilirubin 00:00: [place] 00 Shakira crowley of this Anderso note is n different Cancer from the Center original. TMP TXN RXN INTERP Component Value Date/Time BILITOT 1.5 (H) 2 07:30 AM BILITOT 1.6 (H) 2 07:29 AM BILIDIR 0.4 (H) 2 07:30 AM BILIDIR 0.4 (H) 2 07:29 AM BILIINDIR ECT 1.1 (H) 2 07:30 AM BILIINDIR ECT 1.2 (H) 2 07:29 AM Chronic and stable. Continue to monitor. Chronic Chronic Disease Active Last Univers back pain back pain 5-13 Assessmen i ty of 00:00: t & Plan: [place] 00 Shakira crowley of this Anderso note n might be Cancer different Center from the original. Continue with Branch as needed. Continue to monitor. Dyspnea Dyspnea Disease Active Last Univers 5-14 Assessmen ity of 00:00: t & Plan: [place] 00 Shakira crowley of this Anderso note n might be Cancer different Center from the original. Perhaps secondary to his heartburn , advised to follow up with cardiolog y Abdominal Abdominal Disease Active Met hodi pain pain 3-18 st 00:00: Hospita 00 l Liver Liver Disease Active 2019-03 Last Univers function function 1-13 Assessmen ity of tests tests 00:00: t & Plan: [place] abnormal abnormal 00 [facility]ira [facility] different Center from the original. Recommend patient continue to follow up with PCP for evaluatio n and managemen t. Patient asymptoma tic at this time. 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 Monitor on follow up. Encounter Encounter Disease Active Overview: Univers for other for other 03-09 Formattin i ty of preprocedu preprocedu 00:00: g of this [facility] ral note examinatitony examinatitony might be Andrhianna garrett n different n from the Cancer original. Center Outside records received and sent for scannin. [...] aorta, LVH, A fib, trace AR, MR, SC, poor LVC, mild TR, mild PHTN Hypertensi Hypertensi Disease Active Overview : Univers on on 03-09 Formattin ity of 00:00: g of this [place] note is MD dorinda Barnes from the n original. Cancer BP Center Readings from Last 3 Encounter s: 03/09/19 132/75 02/23/19 149/73 11/21/18 147/75 Last Assessmen t & Plan: Formattin g of this note might be different from the original. 158/77 in clinic today. Will continue to monitor with routine BP evaluatio ns. Atrial Atrial Disease Active Overview: Univer s fibrillati fibrillati 03-09 Formattin ity of on on 00:00: g of this [place] note might be Anderso different n from the Cancer original. Center Rate controlle d. Asymptoma tic. On anticoagu lation.EK G today 03/09/2019: Atrial fibrillat ion, rate 64. Abnrm T, consider ischemia, anterolat eral lds Followed by outside cardiolog ist Dr Wicho Fairchild in [place], [place] ). Sees him q6mths, last visit [...] cardiolog ist. Current Current Disease Active Overview: Univ ers use of use of 03-09 Formattin ity of anticoagul anticoagul 00:00: g of this [place] ant ant 00 note might be Anderso different n from the Cancer original. Center On pradaxa for A-fib. Pt unsure when exactly to hold so he did not take it this morning. LD was 03/08/2019 PM. To see IMPAC today. Neuropathy Neuropathy Disease Active Overview : Univers 03-09 Formattin ity of 00:00: g of this [place] 00 note MD might be Anderso different n from the Cancer original. Center jake feet, LLE, on gabapenti n, followed by outside neurologi st Ex-smoker Ex-smoker Disease Active Overview: Univers 03-09 Formattin ity of 00:00: g of this [place] 00 note MD might be Anderso different n from the Cancer original. Center Remote hx, quit 38 yrs ago Sleep Sleep Disease Active 2020 Overview: Univer s apnea apnea 03-09 Formattin ity of 00:00: g of this [place] 00 note MD might be Anderso different n from the Cancer original. Center Not using CPAP. Allergic Allergic Disease Active 2020 Overview: Un dane rhinitis rhinitis 03-09 Formattin ity of 00:00: g of this [place] 00 note MD might be Anderso different n from the Cancer original. Center On shala and singulair daily. Had asthma as a child, but denies any issues as an adult. 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 The CT imaging study was reviewed today with result interpret ation as indicated , I personall y reviewed the images and agree that there is no definite evidence of disease recurrenc e/metasta ses. Lab results were reviewed and all are within acceptabl e parameter s. Please refer to [facility] for full detailed labs and imaging [...] in the interim. 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 The patient's scan is negative for recurrenc e/metasta tic disease. He is doing well on observati on.Holly connell will RTC in 6 months with restaging scans, labs, and follow up.Holly connell encourage d to follow-up with dermatolo gy and continue self skin and lamin exams. Patient to notify us of any changes to current health status. Allergies, Adverse Reactions, Alerts This patient has no known allergies or adverse reactions. Family History Family Member Diagnosis Comments Start Date Stop Date Source Natural father [facility] Natural mother [facility] Natural brother Colon cancer Univers ity [facility] Cance r [employer] [facility] Family member Heart disease Universi ty [facility] Family member Hypertension Universit y [facility] Family member Stroke [facility] Family member VTE [facility] Social History Social Habit Start Date Stop Date Quantity Comments Source History of tobacco Current smoker [facility] Exposure to 2022-01-30 2022-02-09 Not sure University of SARS-CoV-2 (event) 00:00:00 08:58:00 [facility] Alcohol intake 2020-07-19 2020-07-19 Ex-drinker [facility] 00:00:00 00:00:00 (finding) Hospital Cigarettes smoked 2019-03-09 2019-03-09 Univers ity of current (pack per 00:00:00 00:00:00 [facility] ) - Reported Cancer Ce nter Cigarette 2019-03-09 2019-03-09 University of pack-years 00:00:00 00:00:00 [place] MD Johnson dutta [facility] Tobacco use and 2019-03-09 2019-03-09 Smokeless Universit y of exposure 00:00:00 00:00:00 tobacco non-user [facility] Alcohol Comment 2019-03-09 2019-03-09 occ beer with Univer sity of 00:00:00 00:00:00 dinner [place] MD Johnson dutta [facility] Sex Ass[birth year] At [birth year] M [facility] 00:00:00 00:00:00 Hospital Smoking Status Start Date Stop Date Source Ex-smoker 2019-03-09 00:00:00 2019-03-09 00:00:00 Universi ty of [place] MD [facility] Medications Ordered Filled Start Stop Current Ordering Indication Dosage Frequency Signature Comments Components Source Medication Medication Date Date Medication? Clinician (SIG) Name Name multivitami 2021-03 Yes Take by Uni vers n 0-28 mouth. ity of (THERAGRAN) 09:27: [place] tab tablet 19 MD Molly garrett [facility] cholecalcif 2021-03 Yes Take by Uni vers lesly, 0-28 mouth ity of vitamin D3, 09:27: daily. Zurdo[place] s (VITAMIN 19 D3) 5,000 Anderso units tab n tablet [facility] ascorbic 2021-03 Yes 1000mg Take 1,000 U nivers acid, 0-28 mg by ity of vitamin C, 09:27: mouth [place] (VITAMIN C) 19 daily. 1000 mg Anderso tablet n [facility] fexofenadin 2021-03 Yes Take by Uni vers e HCl 0-28 mouth as ity of (SHALA 09:27: needed. [place] ORAL) 19 MD Molly garrett [facility] ZINC ORAL 2021-03 Yes 50mg Take 50 mg Un dane 0-28 by mouth ity of 09:27: daily. [place] 19 MD Barnes [facility] magnesium 2021-03 Yes 400mg Take 400 Uni vers oxide 400 0-28 mg by ity of mg 09:27: mouth [place] magnesium 19 daily. MD marilyn Barnes [facility] dabigatran 2021-03 Yes 150mg Take 150 Un dane etexilate 0-28 mg by ity of (PRADAXA) 09:26: mouth [place] 150 mg 52 twice MD capsule daily. Molly garrett [facility] furosemide 2021-03 Yes 40mg Take 40 mg U nivers (LASIX) 40 0-28 by mouth ity o f mg tablet 09:26: daily. [place] 52 MD Barnes [facility] mupirocin 2021-03 Yes Open wound Apply U nivers (BACTROBAN) 0-28 of skin of topically ity of 2% ointment 00:00: nose to [place] 00 <Initial> affected MD area(s) 3 Anderso (three) n times a Cancer day. [employer] bimatoprost 2021- Administer Univers (LUMIGAN) 810-20 to both ity of 0.03 % 09:03: 00:00 eyes at [place] ophthalmic 53 :00 bedtime. drops Molly [facility] Lumigan Yes 1[drp] Administer Un dane 0.01 % 5-24 1 drop to ity of ophthalmic 00:00: [place] drops 00 at MD bedtime. Molly [facility] melatonin 3 2021- No 10mg Take 10 mg Univers mg tablet 07-14 by mouth ity o f 12:52: 00:00 nightly as [place] 29 :00 needed. MD Barnes [facility] senna-docus 2021- No 1{tbl} Take 1 U nivers ate 07-14 tablet by ity of (sennosides 12:52: 00:00 mouth 3 [place] -docusate 26 :00 (three) MD sodium) 8.6 times a Johnson so mg-50 mg day as n tablet needed. [facility] HYDROcodone Yes every 6 Uni vers -acetaminop 3-22 (six) ity of hen (NORCO) 00:00: hours [place] 7.5 mg-325 00 needed. MD mg per Anderso tablet [facility] cyclobenzap 2021- No 10mg Take 10 mg Univers rine 04-14 by mouth ity of (FLEXERIL) 09:58: 00:00 as needed. [place] 10 mg 26 :00 MD tablet [facility] HYDROcodone 2021- No 1{tbl} Take 1 U nivers -acetaminop 04-14 tablet by it y of hen (NORCO) 09:58: 00:00 [place] 10 mg-325 26 :00 every 8 MD mg per (eight) Anderso tablet hours as n needed. Cancer [facility] minocycline Yes 100mg Q12H Take 100 M ethodi (MINOCIN) 5-[address] 100 MG 17:40: mouth Hospita capsule 59 every 12 l (twelve) hours. To start after PM insertion omega-3s/dh Yes 300mg QD Take 300 M ethodi a/epa/fish 5-[address] oil (OMEGA 17:40: mouth Hospit a 3 ORAL) 59 daily. l cyclobenzap Yes 10mg Q.[id number] Take 10 mg Methodi rine 5-18 [id number] by mouth [address] (FLEXERIL) 17:40: 3D [...] 14:04: daily. Hospita tablet 34 l HYDROcodone 0 Yes [id number] 1{tbl} Q6H Take 1 M ethodi -acetaminop 5-[address] hen (NORCO) 14:04: mouth Hospi ta 10-325 mg 34 every 6 l per tablet (six) hours as needed for moderate pain .acute pain. montelukast Yes 10mg QD Take 10 mg Methodi (SINGULAIR) 5-[address] 10 mg 14:04: nightly. Hospita tablet 34 l fexofenadin 0 Yes 180mg QD Take 180 M ethodi e (SHALA) 5-[address] 180 MG 14:04: mouth Hospita tablet 34 daily. l furosemide 2020- No 40mg QD Take 40 mg Methodi (LASIX) 40 5-18 05-[address] mg tablet 14:04: 00:00 daily. Hospi ta 04 :00 l dabigatran 0 Yes 150mg Q.5D Take 150 Me thodi [...] l mg/mL times a ophthalmic day. solution minocycline Yes 100mg Q12H Take 100 M ethodi (MINOCIN) 5-[address] 100 MG 12:40: mouth Hospita capsule 59 every 12 l (twelve) hours. To start after PM insertion omega-3s/dh 0 Yes 300mg QD Take 300 M ethodi a/epa/fish 5-[address] oil (OMEGA 12:40: mouth Hospit a 3 ORAL) 59 daily. l cyclobenzap Yes 10mg Q.[id number] Take 10 mg Methodi rine 5-18 [id number] by mouth [address] (FLEXERIL) 12:40: 3D (three) Hosp lópez 10 mg 59 times a l tablet day as needed for muscle spasms. mv-mn/iron/ Yes 1{tbl} Take 1 Me thodi folic 5-[address] acid/herb 09:04: mouth. Hospit a 190 34 l (VITAMIN D3 COMPLETE ORAL) zinc Yes 50mg QD Take 50 mg Methodi gluconate 5-[address] 50 mg 09:04: daily. Hospita tablet 34 l HYDROcodone 2020-0 Yes [id number] 1{tbl} Q6H Take 1 M ethodi -acetaminop 5-[address] hen (NORCO) 09:04: mouth Hospi ta 10-325 mg 34 every 6 l per tablet (six) hours as needed for moderate pain .acute pain. montelukast Yes 10mg QD Take 10 mg Methodi (SINGULAIR) 5-[address] 10 mg 09:04: nightly. Hospita tablet 34 l fexofenadin 0 Yes 180mg QD Take 180 M ethodi e (SHALA) 5-[address] 180 MG 09:04: mouth Hospita tablet 34 daily. l dabigatran 0 Yes 150mg Q.5D Take 150 Me thodi etexilate 5-[address] (PRADAXA) 09:02: mouth 2 Hospi ta 150 mg 54 (two) l capsu times a day. bimatoprost Yes 1[drp] QD Administer Methodi (LUMIGAN) 5-[address] 0.01 % 09:02: both eyes Hospit a ophthalmic 54 nightly. l drops dorzolamide Yes 1[drp] Q.5D Administer Methodi -timoloL 5-[address] (COSOPT) 09:02: both eyes Hosp lópez 22.3-6.8 54 2 (two) l mg/mL times a ophthalmic day. solution triamcinolo Yes Excoriated Apply Univers ne 2-12 eczema topically ity of (KENALOG) 00:00: to [place] 0.1% cream 00 affected MD area(s) Anderso twice n daily. For Cancer red itchy Center skin on chest traMADol Yes Malignant 50mg Take 1 Un dane (ULTRAM) 50 1-09 melanoma of tablet (50 ity of mg tablet 00:00: scalp and mg) by [place] 00 neck mouth MD every 6 Anderso (six) n hours as Cancer needed for Center moderate pain. furosemide 2021- No 1{tbl} Take 1 Un dane (LASIX) 40 7-31 05-13 tablet by ity of mg tablet 00:00: 00:00 mouth [place] 00 :00 daily as MD needed. Molly Has not n taken Cancer [facility] montelukast Yes 1{tbl} Take 1 Un dane (SINGULAIR) 2-14 tablet by ity of 10 mg 00:00: mouth [place] tablet 00 daily. MD [facility] amoxicillin Yes Bitten by 875mg Take 1 Univers -clavulanat 1-11 cat, tablet ity of e 00:00: initial (875 mg) [place] (AUGMENTIN) 00 encounter by mouth 875 mg-125 twice Anderso mg per daily. n tablet Cancer Center dorzolamide Yes 1[drp] Administer Univers -timolol 6-21 1 drop to ity of (COSOPT) 00:00: [place] 2%-0.5% 00 twice MD ophthalmic daily. Anderso solution n Cancer Center Immunizations Ordered Filled Immunization Date Status Comments [facility] e Immunization Name Name Carlee SARS-CoV-2 2020-05-13 Completed Univer sity of Vaccination 00:00:00 Kim lai [facility] Center Vital Signs Vital Name Observation Time Observation Value Comments Source WEIGHT 2020-07-15 09:03:00 76.9 kg WEIGHT 2019-12-14 11:58:00 79.9 kg WEIGHT 2019-09-11 11:16:43 80.2 kg Systolic blood 2022-02-09 18:10:47 146 mm[Hg] Univer sity of pressure [facility] Diastolic blood 2022-02-09 18:10:47 84 mm[Hg] Unive rsity of pressure [facility] Heart rate 2022-02-09 18:10:47 72 /min [facility]i ty [facility] [place] MD [facility] Oxygen saturation in 2022-02-09 18:10:47 97 /min [facility] blood by Kim rivera Pulse oximetry [facility] Body temperature 2021-12-29 14:13:55 36.78 Cyndi [facility] [place] [facility] Respiratory rate 2021-12-29 14:13:55 18 /min [facility] [place] [facility] Body weight 2021-12-29 14:13:55 78 kg Universi ty [facility] MD [facility] BMI 2021-12-29 14:13:55 23.32 kg/m2 Universi ty [facility] MD [facility] Systolic blood 2020-07-19 17:41:00 180 mm[Hg] [facility] pressure Diastolic blood 2020-07-19 17:41:00 101 mm[Hg] [facility] pressure Heart rate 2020-07-19 17:41:00 78 /min [facility] Body temperature 2020-07-19 17:41:00 36.78 Cyndi [facility] Body weight 2020-07-19 17:41:00 76.658 kg [facility] BMI 2020-07-19 17:41:00 22.30 kg/m2 [facility] Procedures Procedure Date / Time Performing Clinician Source Performed PATHOLOGY BIOPSY 2022-02-09 18:02:00 Ana Johnson [facility] INTERPRETATION [facility] PATHOLOGY BIOPSY 2021-12-29 14:59:00 Ana Johnson [facility] INTERPRETATION [facility] CT CHEST WO CONTRAST 2021-12-29 13:49:00 Huber Chadwick [facility] COMPLETE BLOOD COUNT W/ 2021-12-29 12:30:00 Daylin Ngo [facility] DIFFERENTIAL [facility] COMPREHENSIVE METABOLIC 2021-12-29 12:30:00 Huber Chadwick [facility] [place] PANEL [facility] LACTATE DEHYDROGENASE 2021-12-29 12:30:00 Huber Chadwick [facility] CBC 2021-12-29 12:30:00 Daylin Ngo [facility] MANUAL DIFFERENTIAL 2021-12-29 12:30:[address] [facility] GLUCOSE LEVEL 2021-12-29 12:30:00 Daylin Ngo [facility] BLOOD UREA NITROGEN 2021-12-29 12:30:[address] [facility] ELECTROLYTE PANEL 2021-12-29 12:30:00 Daylin [facility] SERUM CREATININE 2021-12-29 12:30:00 Daylin [facility] .GLOMERULAR FILTRATION 2021-12-29 12:30:00 Huber Chadwick [facility] [place] RATE [facility] CALCIUM LEVEL TOTAL 2021-12-29 12:30:[address] [facility] ALBUMIN LEVEL 2021-12-29 12:30:00 Huber Chadwick [facility] ALKALINE PHOSPHATASE 2021-12-29 12:30:00 Huber Chadwick [facility] ALANINE AMINOTRANSFERASE 2021-12-29 12:30:00 Huber Chadwick [facility] ASPARTATE AMINOTRANSFERASE 2021-12-29 12:30:00 [facility]er [facility]wick [facility] TOTAL PROTEIN 2021-12-29 12:30:00 Daylin Ngo [facility] FRACTIONATED BILIRUBIN 2021-12-29 12:30:00 Huber Chadwick [facility] PATHOLOGY BIOPSY 2021-10-20 14:34:00 Ana Johnson [facility] INTERPRETATION [facility] US HEAD NECK SOFT TISSUE 2021-07-14 14:43:00 Mynor Aguilar [facility] [place] [facility] CT CHEST WO CONTRAST 2021-07-14 13:35:51 Mynor Aguilar [facility] COMPLETE BLOOD COUNT W/ 2021-07-14 12:29:00 Mynor Aguilar [facility] DIFFERENTIAL [facility] COMPREHENSIVE METABOLIC 2021-07-14 12:29:00 Mynor Aguilar [facility] PANEL [facility] LACTATE DEHYDROGENASE 2021-07-14 12:29:00 Mynor Aguilar [facility] Results CBC 2021-07-14 12:29:00 Yusra Hopson [facility] MANUAL DIFFERENTIAL 2021-07-14 12:29:00 Yusra Hopson [facility] GLUCOSE LEVEL 2021-07-14 12:29:00 Yusra Hopson [facility] BLOOD UREA NITROGEN 2021-07-14 12:29:00 Yusra Hopson [facility] ELECTROLYTE PANEL 2021-07-14 12:29:00 Yusra Hopson [facility] SERUM CREATININE 2021-07-14 12:29:00 Yusra Hopson [facility] .GLOMERULAR FILTRATION 2021-07-14 12:29:00 Yusra Hopson [facility] RATE [facility] CALCIUM LEVEL TOTAL 2021-07-14 12:29:00 Yusra Hopson [facility] ALBUMIN LEVEL 2021-07-14 12:29:00 Yusra Hopson [facility] ALKALINE PHOSPHATASE 2021-07-14 12:29:00 [facility]us[facility] ALANINE AMINOTRANSFERASE 2021-07-14 12:29:00 Yusra Hopson [facility] er Center ASPARTATE AMINOTRANSFERASE 2021-07-14 12:29:00 Yusra Hopson [facility] er [employer] TOTAL PROTEIN 2021-07-14 12:29:00 Yusra Hopson Univers ity [facility] er Center FRACTIONATED BILIRUBIN 2021-07-14 12:29:00 Yusra Hopson [facility] CT PELVIS WO CONTRAST 2020-05-19 22:31:41 Noman Medel Met [facility] Plan of Care Planned Activity Planned Date Details Comments Source Future Scheduled 2022-02-21 COVID-19 VACCINE (#1) [facility] Test 15:19:09 [code = COVID-19 VACCINE (#1)] Future Scheduled 2022-02-21 SHINGLES VACCINES (1 Met [facility] Test 15:19:09 of 2) [code = SHINGLES VACCINES (1 of 2)] Future Scheduled 2022-02-21 65+ [facility]CCAL [facility] Test 15:19:09 VACCINE (1 - PCV) [code = 65+ PNEUMOCOCCAL VACCINE (1 - PCV)] Future Scheduled 2022-02-21 INFLUENZA VACCINE [facility] Test 15:19:09 [code = INFLUENZA VACCINE] Future Scheduled 2022-02-16 COVID-19 Vaccination [facility] Test 13:50:57 (2 - Booster for [facility] [facility]lee series) [code Center = COVID-19 Vaccination (2 - Booster for Carlee series)] Future Scheduled COVID-19 VACCINE (1) [facility] Test [code = COVID-19 VACCINE (1)] Future Scheduled SHINGLES VACCINES [facility] (#1) [code = SHINGLES VACCINES (#1)] Future Scheduled 65+ [facility]OCO[facility] VACCINE (1 of 1 - PPSV23) [code = 65+ PNEUMOCOCCAL VACCINE (1 of 1 - PPSV23)] Future Scheduled INFLUENZA VACCINE [facility] Test [code = INFLUENZA VACCINE] Encounters Start End Encounter Admission Attending Care Care Encounter Source Date/Time Date/Time Type Type Clinicians Facility Department ID 2021-06-06 Outpatient [facility] [id number] Common 14:29:01 [facility] - [facility] 2022-02-12 2022-02-12 Telephone Vamsi, 1.2.840.1 [id number] Univers 00:00:00 00:00:00 Shannan 78299.1.1 ity of 3.412.2.7 [place] .3.189051 MD Contreras8 [facility] 2022-02-09 2022-02-09 Procedure Alex, 1.2.840.1 [id number] Univers 11:15:00 14:35:46 visit Ana Rausch 20099.1.1 it y of 3.412.2.7 [place] .3.754034 MD Contreras8 [facility] 2022-02-09 2022-02-09 Outpatient DIANA JOHNSON MDA MDA [id number] 08:59:02 14:35:46 ANA Pena [facility] 2022-02-09 2022-02-09 Travel 1.2.840.1 1.2.567.250 [id number] Univers 00:00:00 00:00:00 49042.1.1 350.1.13.41 ity of 3.412.2.7 [place].698 [place] .[place].797[place] 084.8 MD Arriaza [facility] 2022-01-10 2022-01-10 Orders Vazquez, 1.2.840.1 [id number] Univers 00:00:00 00:00:00 Only Abhishek 78676.1.1 ity of 3.412.2.7 [place] .3.230713 MD Arriaza [facility] 2022-01-10 2022-01-10 Telephone Shukla, 1.2.840.1 [id number] Univers 00:00:00 00:00:00 Abhishek 51935.1.1 ity of 3.412.2.7 [place] .3.862666 MD Arriaza [facility] 2021-12-29 2021-12-29 [facility] Huber Chadwick 1.2.840.1 [id number] [facility] 07:13:13 23:59:00 Encounter 57199.1.1 it y of 3.412.2.7 [place] .3.586318 MD Contreras8 Molly garrett [facility] 2021-12-29 2021-12-[address] [facility] [id number] 07:13:13 23:59:00 Jean garrett 2021-12-29 2021-12-29 Office Emiliana 1.2.840.1 [id number] [facility] 11:45:00 11:45:00 Visit Yusra Espinoza 74642.1.1 i ty of [place] 3.412.2.7 [place] .3.523011 [facility]8 [facility] 2021-12-29 2021-12-29 Outpatient DIANA EMILIANA NIKOLAI [facility] [id number] 09:06:00 10:34:59 YUSRA garrett 2021-12-29 2021-12-29 Office Alex 1.2.840.1 [id number] [facility] 09:45:00 10:13:53 Visit Ana Rausch 39400.1.1 it y of 3.412.2.7 [place] .3.004176 MD [facility]reras8 [facility] 2021-12-29 2021-12-29 Outpatient DIANA ALEX NIKOLAI MENCHACA [id number] 09:05:29 10:13:53 ANA garrett 2021-12-29 2021-12-29 Ancillary DaylinHuber 1.2.840.1 [id number] [facility] 08:15:00 09:40:00 Procedure 09057.1.1 it y of 3.412.2.7 [place] .3.862767 MD Contreras8 Molly garrett [facility] 2021-12-29 2021-12-29 Outpatient HUBER WYNN NIKOLAI [facility] [id number] 07:45:20 07:45:20 Jean garrett 2021-12-29 2021-12-29 Travel 1.2.840.1 1.2.660.823 [id number] [facility] 00:00:00 00:00:00 51899.1.1 350.1.13.41 ity of 3.412.2.[place]3.698 [place]3.9817[place] 084.8 MD Arriaza [facility] 2021-11-17 2021-11-17 Office Johnson, 1.2.840.1 [id number] Univers 10:30:00 10:30:00 Visit Ana Rausch 11993.1.1 it y of 3.412.2.7 [place] .3.108998 MD Arriaza [facility] 2021-11-17 2021-11-17 Outpatient ALEX [facility] MDA [id number] 08:10:27 09:31:35 ANA garrett 2021-11-17 2021-11-17 Travel 1.2.840.1 1.2.057.448 [id number] Univers 00:00:00 00:00:00 95066.1.1 350.1.13.41 ity of 3.412.2.7 [place]3.698 [place]3.7995[place] 084.8 MD Arriaza [facility] 2021-10-23 2021-10-23 Telephone Ortega 1.2.840.1 [id number] Univers 00:00:00 00:00:00 Suhail 48831.1.1 i ty of 3.412.2.7 [place] .3.718169 MD Arriaza [facility] 2021-10-20 2021-10-20 Office Johnson, 1.2.840.1 [id number] Univers 09:30:00 09:51:47 Visit Ana Rausch 04817.1.1 it y of 3.412.2.7 [place] .3.825738 MD Arriaza [facility] 2021-10-20 2021-10-20 Outpatient ALEX [facility] MDA [id number] 08:34:33 09:51:47 ANA garrett 2021-10-20 2021-10-20 Telephone Ortega, 1.2.840.1 [id number] Univers 00:00:00 00:00:00 Eufemiamary annvinny 23077.1.1 i ty of 3.412.2.7 [place] .3.848131 MD Arriaza [facility] 2021-10-20 2021-10-20 Travel 1.2.840.1 1.2.348.401 [id number] [id number] Univers 00:00:00 00:00:00 13663.1.1 350.1.13.41 ity of 3.412.2.7 [place]3.698 [place]3.366[place] 084.8 MD Arriaza [facility] 2021-07-21 2021-07-21 [facility] Johnson, 1.2.840.1 [id number] Univers 09:45:00 09:45:00 Visit Ana Rausch 49524.1.1 it y of 3.412.2.7 [place] .3.958479 MD Arriaza [facility] 2021-07-21 2021-07-21 Outpatient DIANA JOHNSON MDA MDA [id number] 08:50:14 09:41:16 ANA garrett 2021-07-21 2021-07-21 Travel 1.2.840.1 1.2.866.384 [id number] Univers 00:00:00 00:00:00 26589.1.1 350.1.13.41 ity of 3.412.2.7 [place].3.698 [place] .3.190927 084.8 MD Arriaza [facility] 2021-07-14 2021-07-14 [facility], 1.2.840.1 [id number] [facility] 07:15:40 23:59:00 Encounter Yusra Espinoza 88231.1.1 ity of [place]u 3.412.2.7 [place] .3.640419 MD [facility] 2021-07-14 2021-07-14 Outpatient DIANA HOPSON MDA MDA [id number] [place] 07:15:40 23:59:00 YUSRA garrett 2021-07-14 2021-07-14 Office Emiliana, 1.2.840.1 [id number] Univers 13:00:00 14:14:36 Visit Yusra Espinoza 13602.1.1 i ty of Keu 3.412.2.7 [place] .3.974440 MD Arriaza [facility] 2021-07-14 2021-07-[address] [facility] [id number] 09:57:01 14:14:36 YUSRA garrett 2021-07-14 2021-07-14 Ancillary Hopson, 1.2.840.1 [id number] Univers 10:00:00 11:00:00 Procedure Yusra Espinoza 83028.1.1 ity of [place]u 3.412.2.7 [place] .3.631620 MD Arriaza [facility] 2021-07-14 2021-07-14 Ancillary Hopson, 1.2.840.1 [id number] Univers 08:30:00 09:55:00 Procedure Yusra Espinoza 01885.1.1 ity of [place]u 3.412.2.7 [place] .3.022986 MD Arriaza [facility] 2021-07-14 2021-07-[address] [facility] [id number] 07:39:07 07:39:07 YUSRA garrett 2021-07-14 2021-07-14 Travel 1.2.840.1 1.2.288.634 [id number] Univers 00:00:00 00:00:00 75125.1.1 350.1.13.41 ity of 3.412.2.7 [place]3.698 [place]3.027500 084.8 MD Arriaza [facility] 2021-04-14 2021-04-14 Office Alex, 1.2.840.1 [id number] Univers 10:00:00 11:09:16 Visit Ana Candelario50.1.1 it y of 3.412.2.7 [place] .3.012234 MD Arriaza [facility] 2021-04-14 2021-04-14 Outpatient DIANA JOHNSON, MDA MDA [id number] 09:16:08 11:09:16 ANA garrett 2021-04-14 2021-04-14 Travel 1.2.840.1 1.2.978.660 [id number] Univers 00:00:00 00:00:00 81852.1.1 350.1.13.41 ity of 3.412.2.[place].3.698 [place] .3.0890[place] 084.8 [facility] 2021-01-13 Outpatient DIANA MIR, MDA MDA [id number] 07:16:36 23:59:00 RAH garrett 2021-01-13 2021-01-13 Outpatient DIANA HOPSON, MDA MDA [id number] 14:56:59 14:56:59 YUSRA garrett 2021-01-13 2021-01-13 Outpatient DIANA RUANO, MDA MDA [id number] 13:23:08 13:23:08 JAYLAN garrett 2021-01-13 2021-01-13 Outpatient DIANA JOHNSON, MDA MDA [id number] 08:54:28 13:21:35 ANA garrett 2021-01-13 2021-01-13 Outpatient DIANA MIR, MDA MDA [id number] 07:45:26 07:45:26 RAH garrett 2020-11-18 2020-11-18 Outpatient DIANA JOHNSON, MDA MDA [id number] 10:16:53 14:52:06 ANA garrett 2020-11-14 2020-11-14 Outpatient DIANA JOHNSON, MDA MDA [id number] 10:14:39 11:21:32 ANA garrett 2020-07-22 2020-07-22 Outpatient DIANA JOHNSON, MDA MDA [id number] MD 11:18:37 13:11:58 ANA garrett 2020-07-19 2020-07-19 Office Raulito, 1.2.840.1 [id number] Methodi 11:43:04 11:58:04 Visit Stephan 10147.1.[address] [place] 3.430.2.7 Hospit a .3.235231 l .8 2020-07-19 2020-07-19 Travel 1.2.840.1 1.2.453.619 [id number] Methodi 00:00:00 00:00:[address] 3.430.2.7 0.2.7.3.698 Ho spita .3.435596 084.8 l .8 2020-07-15 2020-07-15 Outpatient EL THANIA, MDA MDA [id number] 06:58:16 23:59:00 RODOLFO garrett 2020-07-15 2020-07-15 Outpatient EL THANIA, MDA MDA [id number] 13:00:43 13:00:43 RODOLFO garrett 2020-07-15 2020-07-15 Outpatient EL ALEX, MDA MDA [id number] 08:55:29 12:57:38 ANA garrett 2020-07-15 2020-07-15 Outpatient EL EMILIANA, MDA MDA [id number] 08:55:57 11:28:28 YUSRA garrett 2020-07-15 2020-07-15 Outpatient EL ALEX, MDA MDA [id number] 08:54:58 10:39:24 ANA garrett 2020-07-15 2020-07-15 Outpatient EL HUBER CHADWICK MDA MDA [id number] 07:19:15 07:19:15 Jean garrett 2020-07-05 2020-07-05 [facility], 1.2.840.1 [id number] Methodi 00:00:00 00:00:[address] 3.430.2.7 Hospit a .3.181312 l .8 2020-05-19 2020-05-19 [facility], 1.2.840.1 [id number] Methodi 15:48:00 23:59:00 Encounter Noman R. 83150.1.[address] 3.430.2.7 Hospit a .3.779178 l .8 2020-05-19 2020-05-19 Office Medel, 1.2.840.8 [id number] Methodi 14:25:19 15:19:50 Visit Noman Gomez 14747.1.[address] 3.430.2.7 Hospit a .3.959394 l .8 2020-05-19 2020-05-19 Office Raulito, 1.2.840.1 [id number] Methodi 09:51:39 10:06:39 Visit Stephan 92685.1.[address] [place] 3.430.2.7 Hospit a .3.548049 l .8 2020-05-19 2020-05-19 Travel 1.2.840.1 1.2.119.236 3521 [id number] Methodi 00:00:00 00:00:[address] 3.430.2.7 0.2.7.3.698 Ho spita .3.943594 084.8 l .8 2020-05-19 2020-05-19 Orders Sharma, 1.2.840.1 [id number] Methodi 00:00:00 00:00:00 Only Maylin 93105.1.[address] 3.430.2.7 Hospit a .3.461118 l .8 2020-05-13 2020-05-13 Outpatient DIANA MIN, MDA MDA [id number] 10:17:11 10:17:11 KIRIT garrett 2020-04-15 2020-04-15 Outpatient DIANA JOHNSON MDA MDA [id number] 09:51:54 12:13:14 ANA garrett 2020-01-15 2020-01-15 Outpatient DIANA MONTEIRO MDA MDA [id number] 06:34:07 23:59:00 RODOLFO garrett 2020-01-15 2020-01-15 Outpatient DIANA HOPSON MDA MDA [id number] 09:09:07 14:05:46 YUSRA garrett 2020-01-15 2020-01-15 Outpatient EL JOHNSON, MDA MDA [id number] MD 09:09:26 10:49:07 ANA garrett 2020-01-15 2020-01-15 Outpatient EL THANIA, MDA MDA [id number] 07:12:55 07:12:55 RODOLFO garrett 2020-01-15 2020-01-15 Outpatient EL TIMCIUC, MDA MDA [id number] 06:15:00 06:33:00 RODOLFO garrett 2020-01-14 2020-01-14 Outpatient EL JERRYCIFRANCIS, MDA MDA [id number] 00:00:00 00:00:00 RODOLFO garrett 2020-01-14 2020-01-14 Outpatient EL THANIA, MDA MDA [id number] MD 00:00:00 00:00:00 RODOLFO garrett 2019-12-14 2019-12-14 Outpatient DIANA TYLER, MDA MDA [id number] MD 11:14:38 23:59:00 MICHELLE garrett 2019-11-20 2019-11-20 Outpatient EL ALEX, MDA MDA [id number] 00:00:00 00:00:00 ANA garrett 2019-11-02 2019-11-02 Outpatient EL NAYELI, MDA MDA [id number] 00:00:00 00:00:00 MICHELLE garrett 2019-09-11 2019-09-11 Outpatient EL DETT, TAMAR MDA MDA [id number] 07:34:39 23:59:00 Jean garrett 2019-09-11 2019-09-11 Outpatient EL EMILIANA, MDA MDA [id number] 10:22:46 15:11:13 YUSRA garrett 2019-09-11 2019-09-11 Outpatient EL ALEX, MDA MDA [id number] 11:26:16 14:28:39 ANA garrett 2019-09-11 2019-09-11 Outpatient EL DETT, TAMAR MDA MDA [id number] 08:52:53 08:52:53 Jean garrett 2019-09-11 2019-09-11 Outpatient EL DETT, TAMAR MDA MDA [id number] 08:10:12 08:10:12 Jean o n Results Test Description Test Time Test Comments Results Result Comments Source Pathology Biopsy Interpretation 2022-02-12 16:52:51 Test Item Value Reference Range Interpretation Comme nts Submitted u7ojkVPdCYTqf4bkEOKjoBIoAdUyXkGoOiCxYckofYSgCLcvwhEjLYgkz7NeE2AuQnHuLHeswhFlDWMm HxtaebffPKLoUFO4vzKmREUkZRpgYIDfESfoVt7iwQJovMkpUsVgRYPvp1wpnyTJwwwtfLq0u7pnDLXv VqO9oEAiNMufU4cfzpAbgFQqDQPoUZf8bB18RTLbaO5 Clinical inFAcDEhlfoEdEpZ1NHlxEOLzLhJ7RGXixMMaTOTwN1xsWXCyBEonKVUjMHagxXJcAHQ3fEtee2B4iCC yvRGsgHnbXiXvBzDoVoGOl6XsEMh2sIgfJ7ZtCPRxEcS3xAScXJVoIGduRCHuDHCfyeC0fI87SRicolT 9eZSjy5Azu43iz878gJ0cxVBlADV9UOWtSUCdgCYkRZ History KdESL1QMOidGVeB6szRQEtXQ5hrygdFHlbYDosXSKjjHQ5YOOabYHcD0FnNTAaBHhaWIPntjy5QfPnNb 6rzKUmzMeaJIgdb6goi2ldeSZnAko7WVAxWwMoFlvjGImoe0Pnr4xmLIDfwg5zHXZ0oNEidWitn7Z7qZ NlXASeaYVlwyFoOHMmChI5BJonOV0mry53TVYrBXT3z (test code j9anWQqpVkyucEujJZeHNnsZ2OkLTYdw605EWLbZ7OzXSZoi3R9tzXtDjGdGOOvxKW6kxL7FHFfALb3x MEabqQ4hwRemYNeM0asuZ9lKJRcPZ4tayvzz7coUJqyERgxWTGqsBO3wmR2KBPmzJViR3EonJ9aJHWuO JcvHLEknqz8MtBuEg9ezHYfrPttYMiiPbimIAdrRBWj = 17694) ijIuuwKgdSbgBWIdQAWjZLrbBBRyLYxhWRCtNREjXxLpbCiqkKhjhG3uUuExEfFtTOpoRN7nRABgF8kp pGHyZMYaTQRmK3rpXyYwhW1ekRkgOExhrgOrSZYva6GwZDJuzCzeH7ZwP1gkr51zQC2mGN52qVQyCWQa FDEpJpetSAXduIBxbmEeFyXex8zzALrPEFZkFSGeXHY sYWluXGYxXGZzMjJcbGFuZzEwMzNcaGljaFxmMVxkYmNoXGY nFXvxK6meGsPwGpImJebiCQU0qT== Diagnosis f6azbKXqORSspKAtMRXrEugbcySxZUDohKMlO0TdjtjtLXkuAM4tZC0xlZtgxOSxiWPhZWCdGcZwh6dx i274tHVpp8roPFIQwqnmmSa7nWigU53yc0C3JpzmM5jgULXsITkpPTBqHOzqbFYnEOx7ERSubYEqnqFs EvEuNGOtzLTpuSU4QTFnKA2wgvaoELntFSfgUYZldmL (test code 2ZYIpiZKuN4NmTBHeAK3jybgeOMT5LSexLNOiNJA2KfIdHOIaq0Ulxuf5PqAfxSQrIRsctYPtshcimrS uKFEcLGKQZxWWDMO9TJCbzGFttJ7zEXUff3MfUAYqGHXgm9yvJVDcqGdpz8Y1ROUkryrkwRbeZCjyaK6 9XsWbJ7XeHZFNLY6rXO1JMCKVJmVCGVUPCQ0ODrIFSF = 34) CCGRBbV8hHHMUOB8JFQdEWUV2ZK3daW5mBRCOOIVNUR5SUXOCZSENCHFaOI8JPNNEQR8FCLBCRJRVFHO FYETsCFYQMHcCCSa6DKQtsK5HVZEECJREAERbxFRHAMOTZGs8rDISmovEVjYTutlYhNSK9xHOwONL8bD 5nGwMcCSIdfI9niQUvNJUsU98cbtIlHIxisUAvn9Glu GHexLFkYDDpgFuugnGiLTRdm1Z2XGTlGNywrm1gwHClBHwfG6ifWN26MNfxa8Vzo9GfzAOmXtCgJTWor M3ulBZnHD1gFIjgiuVgS32rTXJfjzITTUTttL6hYH5eSVFzp7AssSshdzSceXZsSPHiUrZhYAKxUsKqX LLpqA7cuKLaBRJyvvBFqGExp8MibwZfbeRwohYfIM67 WPQ7DJPeylljbGJbIVtswSoft0SwWAKqH1OeEpsbOHTnmMIsbQ== Gross v6btjZWcRSLycPDHKGCkWVHbGI6hcQmcnAz0kQtzUCYgihT9pYBbKIqxz0bbYPA1a6ngbsJYYbjsGZWp DM3qAEnjAWQcTI5uUuGzNTEfDdRqIPLmyTEjwcPuLrPoAXSoaFDjyOK1ONQeFB1rvimiVUdpDJohBPQm vcD1XRGdfRFrQ5XjLCAeIN7stnndPJG6LVHGWwduKv8 Descriptio cuCPckPrjQjImDhMrICSpHCToHMFghKqlURLgIKx4mU4VKyskA65mu8V6Myb3BREyLLIaS6MwAU6aFSH nePNcQ13ZGqnfYFT1JLCDZksoYlmxyNqxg7DmbZKhIVLmKTmelFOoGUPkCNCzJJrqQdZWWzZdXfFoSXG 2GJT3OkB8BXz2ZGEVSXZvTpU2ATP1OPR4VDp3XXQcZO n (test 2jLUddmBSnTJhbJipaSKfiJ415VMrzLQVtC0JeP7QzZPshMjLgZVdxINZsZPFlACmoVXTlW4DAPUYaIB F0DFZrPWPtQUy8ZLaqQ6ZNKMSaQCV9CuMnVIVwBiL4XLf6SWCRXm1mSBUlZliaHJVaYeM1RZQ5LUImEC WuZsFbGDDzOQVgVJehqFPiNN4oeDifMPWpCZ5WFKYxW code = AxvUFSdCjBiPBRUHubfPUKiBDxymLPeHTJUXzkwyMRtainsYWLdUqUryTjwnZ0tjLOjY0pqBeIvUqzxw OikJfSnvFWpSeNtISmvxCMukSLjNLpxacDxuyqpQOHBTyylJMRhKWfwngAaAFDjoG6rFXvwYdJfJW40K DCvq3Tnc7emzIldTKC1DXFnBVEcPWNrNN2kgZ7nryzp 4203804252 stRhWNIxvLjclIRyDT9sDQ9olBIaNPZkcXApAMzrmKTiICLwoJ6azWZqr3FcaS5pCRJgOoZ4SQLyXgC6 OGQxFlBzmH6mRFblQWUtmC2wq9IkTvSeZEQacMQgqCW6eyQxXWZaqfpnyyMtLFMyszIyKYawxIVwEDSx DAUxNPsyghGzjnWuM0GtKCtpOeJawLNdTazmM15sOJC ) 7lRnjpCHtm16winN2mTKffT3iCD72AVGqCHWgg47dlSgcWB6gokyfyq7mYGjaUDFaJOIurMUbNJrmIFb iz5DiYJOtYNEsMWkydAIvczWjEMdsZDRtRBGtwoWvCX88qGOcqGwwx3XizUq7nIOhDdskVVRjEDwxm5W eYIdykAekPMFbWqSpYLeCJFPBCA0KHNBHAEC1VZNaSU NsdQMvLXooiyUdnUZuMJQpYScgJZHxQHxgU2JjmERelZQqZRP9sH0qjgbbp9CrcRe6jPFjPMVxaCNwqs FiLMubnX8wS99RHbkkURZpYVEdV6hePPEhWBxxSEXoX60vx5FLb6Qqn4uljPfub4DpjISmNA17YBPfhA PfHQZ8AH2clCamZHSzDFmjLdZcVuENPl2= Disclaimer z6mbgOWaUCVpsTDdDaVbAPYdJKWop0hdLGCupDTdCuWqInQbRlUuNedbeCTuICZyTiBko3ftj173bZDm o2goZDHvNvA5jZSlKWZlrPYmV219JFKqFMnxh2btk4EoYFWelPOez3X0BSTWrvuguZr3aWxgB65wj1F9 IvecQ1alYCIqCALjE7TzZF9vDWDlCig6QIO8XXT6JNR (test code tNHUlH9HdAI4iQWIcoNZtZJz8m0yntVnlWMNoXGL6r0boGTbgdtWqQF3anv2ibQl6s3yrnlYvHHXcSPZ bxGHIWRIcQ0NgoWhfQa1uaOl0lTlfKbnyKMQ1Qqs7YR4dso64rmk1iEbeZSNidciwUeF8SDprWHFdaqz aLSl7JZxwSSAglPD1IOOssJOdH0EzNGXvPM3aldo9GV = 9844) X6PUmeYGRkBsE5WQAxsQKgFRSkjNvqGAcjm660SVA8UnYoLA9xL6Esj0O3xZ6bbZHwOTRxcXYyXhNwZS Vqxz3pvLHuKArrc2CfXYP9gkH2rLZfwXDhDSMnSJ30Mxbkk3DzIcihKPG7VSQvgcFbo3Hcw8krCmNcpw AwU0wlC4HoNWMaPHGiPRZjDgCtdgMek2Fvq9SvrJFyn Cd3a1mnWCPuLLMgcLsnd3vnKSP7FPJhJ3N4jZWmo0gkJAjgNLBtwOB8qxI2PZSvpVKkN7FdtE4rUSWzS Z3ywkr3f8ptFEV4DChuGTWeOcL4roK4ZTHvjMEpCLKpwVciTEyny479QJH7ElBvNAQff5CoX9GddShmC 57qdHktE63vZPZwrKbzlB2apNsixW5zMjTsHpZzJMxj rDmfqSUztmtnSZpqqaG0BDhsmlgtEEIeKAuaM7vmKxHoJWFrfZeiYZiqv6BrKYVyGCOcTfrcfqW5SCWK l60qFBDza4IcSOVqyL5cmWQoBXskemAuyOU3ENabxfQbKtPesxEcFBQhwB3sZCPyKO1aZSDxfjUcgw8j mhOxSFKhLGDmE3XebwugqCciheZaUGQbwa4jowQbRBV 3IPRXBO7CMDTlTUQdv78kTIZpzPqdeW8ioGUqleKvWPXgi9EraD3bjMGVIJOuF1dwTH9dNJpih6EvrNY ngWRylIL0BITfb4DtZoWdzkTrxSVrxMZoV8LkgYpbJ6gaMVTvSWRrjrOvrANop8SdLYLxnXS1iVQiJO3 IOgQMl59jVAQhYWLYwkAxJDBkjYzaeZH3ufS8qN2nJi CAHjBghWMdbCHjOvgyVLTcm938xj2mmiE3NSIdAAOwaotac9VcKYQuCPAttE00EACtZMUmcu9olnahmQ OilbAbK9Zbjtp7qU6gYAQzIPgxWUNmBSKmSzLobIHjVeAgDqTlePekbHspBBgsMeFvGAZfSZrtQ6rfSh FcZnMyMlxwYXJ9 [facility] HospitalFractionated [id number] 13:34:35 Test Item Value Reference Range Interpretation Comments Bili Total (test code 1.5 mg/dL See_Comment H Indocy anine Green = 1974-04) (ICG) may cause falsely elevate d bilirubin resul ts. Total and direc t bilirubin must not be measured from s amples containing indo cyanine green. False el evation of total biliru bin can be seen in magdaleno ents with IgG concentrations above 28 g/L. [Automa reynaldo message] The sy stem which generated this result transmit reynaldo reference range : <=1.2. The refe rence range was not u sed to interpret this result as normal/abnor mal. Bili Direct (test code 0.4 mg/dL See_Comment H Indoc yanine Green = 1967-09) (ICG) may cause falsely elevate d bilirubin resul ts. Total and direc t bilirubin must not be measured from s amples containing indo cyanine green. [Automat ed message] The sy stem which generated this result transmit reynaldo reference range : <=0.3. The refe rence range was not u sed to interpret this result as normal/abnor mal. Bili Indirect (test 1.1 mg/dL 0.0-0.9 H code = 1970-) Lab Interpretation Abnormal (test code = 51308-1) [facility] HospitalTotal [id number] 13:34:34 Test Item Value Reference Range Interpretation Comments Total Protein (test code = 2885-2) 7.0 g/dL 6.4-8.3 [facility] HospitalCalcium [id number] 13:34:33 Test Item Value Reference Range Interpretation Comments Calcium Lvl (test code = 21670-7) 9.9 mg/dL 8.4-10.2 [facility]ALT20[facility] 13:34:32 Test Item Value Reference Range Interpretation Comments ALT (test code = 28 U/L See_Comment [Automated message] The 1741-) system which ge nerated this result transmit reynaldo reference range : <=41. The reference range was not used to interpr et this result as jermain l/abnormal. [facility]BUN[facility] 13:34:31 Test Item Value Reference Range Interpretation Comments BUN (test code = 3094-0) 28 mg/dL 6-23 H Lab Interpretation (test code = Abnormal 16951-2) [facility] HospitalGlucose [id number] 13:34:30 Test Item Value Reference Range Interpretation Comments Glucose Level (test code 100 mg/dL 70-99 H Eff ective 09/28/15, = 2345-7) the glucose reference inter vals have been updat ed based on [place] Diabetes Associ ation guidelines (Standards of Medical Care in Diabetes 2016. Diabetes Care 2 016; 39: S13-S22).Fa sting blood glucose:Normal: 70-99 mg/dLImpa ired fasting glucose (increased risk for diabetes or pre-diabetes): 100-125 mg/dLDiabetes mellitus: >/=12 6 mg/dL Random bl ood glucose:Normal: 70-199 mg/dLNot e: Random glucose >100 mg/dL is associ ated with increased risk for diabetes Lab Interpretation (test Abnormal code = 58127-1) [facility] HospitalGlomerular Filtration Rate 2021-12-29 13:34:28 Test Item Value Reference Range Interpretation Comments eGFR (test code = 79 See_Comment The eGFRcr [place] [address]) the 2020 CKD-EP I creatinine equation using creatinine, patient's age, and sex for adults 18 years of age and older. Other fa ctors, especially musc le mass, may affect accuracy and need to be considered.A ccording to the Kidney Dise ase: Improving Global Outcomes (KDIGO) CKD Work Group 2012 Clinical Practice Guidel ine, chronic kidney disease (CKD) is defined as the abnormalities of kidney struc ture or function, prese nt for more than 3 months, with implications fo r health. CKD should be class ified by cause, GFR karyna gory, and albuminuria cat egory. KDIGO guidelines prov navdeep the following GFR c ategoriesStage Description GFR mL/min/1.73 m2G1* Normal or high >= 90G2* Mildly decrease d 60-89G3a Mildly to moder ately decreased 45-59 G3b Moderately to severely dec reased 30-44G4 Severely decrea sed 15-29G5 Kidney failure <15*In the absence of evid ence of kidney damage, neither G1 nor G2 fulfill criteri a for CKD. [Automated mess age] The system which ge nerated this result transmit reynaldo reference range: >=60 mL/ min/1.73 sq. m. The referenc e range was not used to int erpret this result as jermain l/abnormal. [facility] HospitalLDH2022-10-[facility] 13:34:27 Test Item Value Reference Range Interpretation Comments LDH (test code = 207 U/L 135-225 Results gre ater than 1651 55125-0) U/L may not be reliable due to matrix effec t with extended diluti on as it exceeds the man ufacturer's recommended paulino it. Caution should be exerc ised when interpreting cool ch values and done in con junction with clinical c ontext. [facility] HospitalAlkaline [id number] 13:34:26 Test Item Value Reference Range Interpretation Comments Alk Phos (test code = 6768-6) 89 U/L 40-129 [facility] HospitalAlbumin [id number] 13:34:25 Test Item Value Reference Range Interpretation Comments Albumin Lvl (test code 4.3 See_Comment [Aut omated message] The = 175-7) system which ge nerated this result tra nsmitted reference range : 3.5 - 5.2 gm/dL. The refe rence range was not used to interpret this result as normal/abnormal . [facility] HospitalAspartate Aminotransferase 2021-12-29 13:34:24 Test Item Value Reference Range Interpretation Comments AST (test code = 30 U/L See_Comment [Automated message] The 1919-10) system which ge nerated this result transmit reynaldo reference range : <=40. The reference range was not used to interpr et this result as jermain l/abnormal. [facility] HospitalElectrolyte [id number] 13:34:23 Test Item Value Reference Range Interpretation Comments Sodium Lvl (test code = 139 See_Comment [Au tomated message] 753-2) The system [employer] generated this result transmitted ref erence range: 136 - 14 5 mEq/L. The refe rence range was not u sed to interpret this result as normal/abnor mal. Potassium Lvl (test code 4.8 See_Comment [A utomated message] = 2893-3) The system [employer] generated this result transmitted ref erence range: 3.5 - 5. 1 mEq/L. The refe rence range was not u sed to interpret this result as normal/abnor mal. Chloride (test code = 101 See_Comment [Auto mated message] 0) The system [employer] generated this result transmitted ref erence range: 98 - 107 mEq/L. The refe rence range was not u sed to interpret this result as normal/abnor mal. CO2 (test code = 2027-11) 30 See_Comment H [A utomated message] The system [employer] generated this result transmitted ref erence range: 22 - 29 mEq/L. The reference r janeth was not used to interpret this result as normal/abnor mal. Anion Gap (test code = 8 See_Comment [Aut omated message] 33234-7) The system [employer] generated this result transmitted ref erence range: 4 - 14 m Eq/L. The reference r janeth was not used to interpret this result as normal/abnor mal. Lab Interpretation (test Abnormal code = 91951-1) [facility].Serum [id number] 13:34:21 Test Item Value Reference Range Interpretation Comments Creatinine (test code = 2160-0) 0.94 mg/dL 0.67-1.17 [facility] 12:59[facility]58 Test Item Value Reference Range Interpretation Comments Neutrophil % (test code = 59.0 % 42.0-66.0 770-8) Lymphocyte % (test code = 26.3 % 24.0-44.0 736-9) Monocyte % (test code = 8.7 % 2.0-7.0 H 5905-5) Eosinophil % (test code = 4.9 % 1.0-4.0 H 713-8) Basophil % (test code = 0.8 % 0.0-1.0 706-2) IGRE % (test code = 0.3 % 0.0-0.4 IGRE % c ount 48186-8) includes Metamyelocytes, Myelocytes, and Promyelocytes. Neutrophil Abs (test code 4.21 K/uL 1.70-7.30 = 751-8) Lymphocyte Abs (test code 1.88 K/uL 1.00-4.80 = 731-0) Monocyte Abs (test code = 0.62 K/uL 0.08-0.70 742-7) Eosinophil Abs (test code 0.35 K/uL 0.04-0.40 = 711-2) Basophil Abs (test code = 0.06 K/uL 0.00-0.10 704-7) IG Abs (test code = 0.02 K/uL 0.00-0.04 38973-4) Lab Interpretation (test Abnormal code = 84931-7) [facility] [employer].[id number] 12:59:46 Test Item Value Reference Range Interpretation Comments WBC (test code = 7.1 K/uL 4.0-11.0 6690-2) RBC (test code = 789-8) 4.21 See_Comment L [Au tomated message] The system [employer] generated this result transmitted ref erence range: 4.50 - 6 .00 M/uL. The refer ence range was not u sed to interpret this result as normal/abnor mal. Hgb (test code = 718-7) 14.2 See_Comment [Au tomated message] The system [employer] generated this result transmitted ref erence range: 14.0 - 1 8.0 gm/dL. The refe rence range was not u sed to interpret this result as normal/abnor mal. Hct (test code = 42.8 % 40.0-54.0 4544-3) MCV (test code = 787-2) 102 fL 82-98 H MCH (test code = 785-6) 33.7 pg 27.0-31.0 H MCHC (test code = 33.2 See_Comment [Automate d message] 786-4) The system [employer] generated this result transmitted ref erence range: 31.0 - 3 6.0 gm/dL. The refe rence range was not u sed to interpret this result as normal/abnor mal. RDW-SD (test code = 54.4 fL 35.1-46.3 H 54561-2) RDW-CV (test code = 14.4 % 12.0-15.5 788-0) Platelet count (test 154 K/uL 140-440 code = 777-3) MPV (test code = 9.5 fL 4.0-10.4 81968-9) INRBC (test code = 0.0 % See_Comment The INRBC (instrument 40615-2) NRBC) value ref lects the enumeration of nucleated red b lood cells contained in a 200uL sampleof whole blood analyzed by the instrument. Thi s value maydiffer from the NRBC value repo rted in a manual differential,wh ich is based on a 100 cell differential. [Automated mess age] The system [employer] generated this result transmitted ref erence range: <=0.0. T he reference range was not used to int erpret this result as normal/abnormal . Lab Interpretation Abnormal (test code = 72782-2) [facility] Pelvis Wo [id number] 22:56:28EXAMINATION: CT PELVIS WO CONTRAST CLINICAL HISTORY: R10.31 Right lower quadrant pain, Z98.890 Otherspecified postprocedural states, RLQ PAIN TECHNIQUE:Multiple axial images of the pelvis were obtained without intravenous contrast. The lack of intravenous contrast reduces sensitivity of detecting amita d organ disease. Sagittal and coronal computerized reformatted [...] recent right inguinal herniorrhaphy. No residual/recurrent hernia. [id number] Interface, Radiology Results Incoming - 05/19/2020 5:59 [...] and/or automated exposure control to reduce radiation dose.COMPARISON: None.FINDINGS:1.There are surgical clips in the rightgroin compatible with history of recent inguinal herniorrhaphy. There is no recurrent hernia. Mild stranding in the subcutaneous tissues along the surgical scar could indicate mild residual inflammation, but there is no fluid collection to suggest hematoma or abscess.2.There is sigmoid diverticulosis.There is no evidence of bowel obstruction or inflammation pelvis. The appendix is normal.3.Urinary bl adder is normal. The distal ureters are not dilated.4.Small metal seeds are fiducial markings in theprostate are present.5.There is no significant pelvic lymphadenopathy. There is no ascites.6.Diffusecalcific atherosclerosis is present.7.There are degenerative changes in the spine and hips.IMPRESSION :Expected postoperative changes from recent right inguinal herniorrhaphy. No residual/recurrent hernia.[id number]
[2022-02-21 16:32] LABS: Absolute Lymphocytes (CBC) 1.4 K/uL (0.7-4.9); Hematocrit 42.6 % (39.6-49.0); MCV 100.2 fL (80-100); MPV 7.6 fL (7.6-11.3); RBC Red Blood Cell Count 4.25 M/uL (4.33-5.43)
[2022-02-21 16:53] LABS: Albumin 3.5 g/dL (3.4-5.0); Bilirubin Total 4.1 mg/dL (0.2-1.0); Potassium 3.6 mmol/L (3.5-5.1); Protein, Total 7.3 g/dL (6.4-8.2); Troponin High Sensitivity 14.7 pg/mL (<58.9)
--- NOTE | 2022-02-21 17:15 | RAD REPORT ---
EXAM DESCRIPTION: Aubree Single View02/21/2022 4:58 pm CLINICAL HISTORY: Chest pain COMPARISON: none FINDINGS: The lungs appear clear of acute infiltrate. The heart is markedly enlarged. Pacemaker lissette ds in place IMPRESSION: No acute abnormalities displayed
--- NOTE | 2022-02-21 17:17 | RAD REPORT ---
EXAM DESCRIPTION: CT - Head Brain Wo Cont - 02/21/2022 5:10 pm CLINICAL HISTORY: Headache COMPARISON: None TECHNIQUE: Computed axial tomography of the head was obtained. IV contrast was not requested. All CT scans are performed using dose optimization technique as appropriate and may include automated exposure control or mA/KV adjustment according to patient size. FINDINGS: An intracranial bleed is not seen . The ventricles are normal in caliber. No extra-axial fluid collection is noted. No significant hypodensity within brain Fluid within the sinuses/ mastoids is not seen. IMPRESSION: No acute intracranial abnormality is seen. If patient's symptoms persist MRI of the bra in would be recommended.
--- NOTE | 2022-02-21 17:46 | EDPHYS ---
Physician Documentation [facility] Name: Tomy Diggs Age: 86 yrs Sex: Male : 1935 Arrival Date: 02/21/2022 Time: 15:16 Bed 3 Private MD: ED Physician Mynor Ramires HPI: 02/21 17:04 This 86 yrs old Male presents to ER via Ambulatory with complaints of Shortness Of rt Breath, Headache. 17:04 The patient has shortness of breath with light activity. Duration: The symptoms are rt continuous. The patient's shortness of breath has no apparent modifying factors. Presents to the ED with a shortness of breath that has been present for some time but a chest pain that radiates to both of the shoulders as well as the neck when he lies down. Worse malaise left side, improved when he lies on the right side. The symptoms have resolved upon arrival to the ED, only reports a mild shortness of breath at this time but developed a headache today, general. Did take some Tylenol which improved but did not resolve his symptoms. He does not get headaches commonly. Denies other symptoms or other acute symptoms, symptoms are moderate severity, no other aggravating alleviating factors.. Historical: - Allergies: 15:31 No Known Allergies; aa5 - PMHx: 15:30 Atrial Fib; Back pain; Cataracts; Hernia; aa5 - PSHx: 15:30 back sx; Cholecystectomy; hemorrhoid sx; hernia repair; Melanoma removed; Rt. ear; aa5 pacemaker; skin cancer; - Immunization history:: Adult Immunizations unknown. - Social history:: Smoking status: Patient denies any tobacco usage or history of. - Family history:: not pertinent. ROS: 17:04 Constitutional: Negative for fever, chills, and weight loss, Eyes: Negative for injury, rt pain, redness, and discharge, ENT: Negative for injury, pain, and discharge, Abdomen/GI: Negative for abdominal pain, nausea, vomiting, diarrhea, and constipation, Back: Negative for injury and pain, MS/Extremity: Negative for injury and deformity, Skin: Negative for injury, rash, and discoloration, Psych: Negative for depression, anxiety, suicide ideation, homicidal ideation, and hallucinations. 17:04 Cardiovascular: Positive for chest pain, Negative for edema. 17:04 Respiratory: Positive for shortness of breath, Negative for cough. 17:04 Neuro: Positive for headache, Negative for altered mental status. Exam: 17:04 Constitutional: This is a well developed, well nourished patient who is awake, alert, rt and in no acute distress. Head/Face: Normocephalic, atraumatic. Eyes: Pupils equal round and reactive to light, extra-ocular motions intact. Lids and lashes normal. Conjunctiva and sclera are non-icteric and not injected. Cornea within normal limits. Periorbital areas with no swelling, redness, or edema. ENT: Nares patent. No nasal discharge, no septal abnormalities noted. Tympanic membranes are normal and external auditory canals are clear. Oropharynx with no redness, swelling, or masses, exudates, or evidence of obstruction, uvula midline. Mucous membranes moist. Neck: Trachea midline, no thyromegaly or masses palpated, and no cervical lymphadenopathy. Supple, full range of motion without nuchal rigidity, or vertebral point tenderness. No Meningismus. Chest/axilla: Normal chest wall appearance and motion. Nontender with no deformity. No lesions are appreciated. Cardiovascular: Regular rate and rhythm with a normal S1 and S2. No gallops, murmurs, or rubs. Normal PMI, no JVD. No pulse deficits. Respiratory: Lungs have equal breath sounds bilaterally, clear to auscultation and percussion. No rales, rhonchi or wheezes noted. No increased work of breathing, no retractions or nasal flaring. Abdomen/GI: Soft, non-tender, with normal bowel sounds. No distension or tympany. No guarding or rebound. No evidence of tenderness throughout. Skin: Warm, dry with normal turgor. Normal color with no rashes, no lesions, and no evidence of cellulitis. MS/ Extremity: Pulses equal, no cyanosis. Neurovascular intact. Full, normal range of motion. Neuro: Awake and alert, GCS 15, oriented to person, place, time, and situation. Cranial nerves II-XII grossly intact. Motor strength 5/5 in all extremities. Sensory grossly intact. Cerebellar exam normal. Normal gait. Psych: Awake, alert, with orientation to person, place and time. Behavior, mood, and affect are within normal limits. 17:04 ECG was reviewed by the Attending Physician. Vital Signs: 15:28 BP 159 / 70; Pulse 86; Resp 20 S; Temp 98.5(O); Pulse Ox 99% on R/A; Weight 74.84 kg aa5 (R); Height 5 ft. 11 in. (180.34 cm) (R); 17:42 BP 143 / 62; Pulse 75; Resp 15; Pulse Ox 98% ; jl7 15:28 Body Mass Index 23.01 (74.84 kg, 180.34 cm) aa5 MDM: 15:59 Patient medically screened. rt 17:45 Differential diagnosis: ACS, CHF, pneumonia, pneumothorax, intracranial hemorrhage, rt subarachnoid hemorrhage. Data reviewed: vital signs, nurses notes, old medical records, lab test result(s), EKG, radiologic studies. ED course: Patient presents to the ED with, headache. His EKG shows known A. fib with a controlled rate. Chest x-ray is clear of pneumonia, pneumothorax. Is currently taking anticoagulants, pulmonary embolism very unlikely. Patient's headache is not consistent with meningitis, encephalitis, subarachnoid hemorrhage. CT scan of the head is unremarkable. His symptoms have resolved without any treatment. He is negative troponin, BNP is at baseline. No evidence of congestive heart failure on the chest x-ray. I discussed these findings with the patient, offered him admission. 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 Believe that this is reasonable at this time, patient will return for any worsening symptoms or new concerning symptoms.. 02/21 16:12 Order name: CBC with Diff; Complete Time: 16:58 rt 02/21 16:12 Order name: CMP; Complete Time: 16:58 rt 02/21 16:12 Order name: Troponin High Sensitivity; Complete Time: 16:58 rt 02/21 16:12 Order name: BNP; Complete Time: 16:58 rt 02/21 16:12 Order name: Chest Single View XRAY; Complete Time: 17:25 rt 02/21 16:12 Order name: Head Brain Wo Cont CT; Complete Time: 17:25 rt EC:04 Rate is 61 beats/min. Rhythm is regular, A fib with Unifocal PVCs. QRS Ira is Normal. rt QRS interval is normal. QT interval is normal. No Q waves. Administered Medications: No medications were administered Disposition Summary: 02/21/22 17:45 Discharge Ordered Location: Home rt Problem: new rt Symptoms: are resolved rt Condition: Stable rt Diagnosis - Chest pain, unspecified rt - Headache rt Followup: rt - With: Karel Victor MD - When: 2 - 3 days - Reason: Discharge Instructions: - Discharge Summary Sheet rt - Nonspecific Chest Pain, Adult rt - General Headache Without Cause rt Forms: - Medication Reconciliation Form rt - Thank You Letter rt - Antibiotic Education rt - Prescription Opioid Use rt Signatures: Dispatcher [employer] Annika Haynes, RN RN aa5 Mynor Ramires MD MD rt
--- NOTE | 2022-02-21 17:46 | ER ---
Nurse's Notes [facility] Name: Tomy Diggs Age: 86 yrs Sex: Male : 1935 Arrival Date: 02/21/2022 Time: 15:16 Bed 3 Private MD: Diagnosis: Chest pain, unspecified;Headache Presentation: 02/21 15:28 Chief complaint: Patient states: "I've been SOB for quite some time now and it's aa5 getting worse". Pt states "I can only get comfortable lying on my right side". Pt reports chills, reports chest pain radiating to jake shoulders today. Coronavirus screen: shortness of breath. Ebola Screen: Patient denies travel to an Ebola-affected area in the 21 days before illness onset. Initial Sepsis Screen: Does the patient meet any 2 criteria? No. Patient's initial sepsis screen is negative. Does the patient have a suspected source of infection? No. Patient's initial sepsis screen is negative. Risk Assessment: Do you want to hurt yourself or someone else? Patient reports no desire to harm self or others. Onset of symptoms was February 2022. 15:28 Method Of Arrival: Ambulatory aa5 15:28 Acuity: AMOS 2 aa5 Triage Assessment: 17:55 General: Appears in no apparent distress. comfortable, Behavior is calm, cooperative, kr3 appropriate for age. 18:17 Respiratory: the patient has mild shortness of breath. kr3 18:18 Respiratory: Reports. kr3 Historical: - Allergies: 15:31 No Known Allergies; aa5 - PMHx: 15:30 Atrial Fib; Back pain; Cataracts; Hernia; aa5 - PSHx: 15:30 back sx; Cholecystectomy; hemorrhoid sx; hernia repair; Melanoma removed; Rt. ear; aa5 pacemaker; skin cancer; - Immunization history:: Adult Immunizations unknown. - Social history:: Smoking status: Patient denies any tobacco usage or history of. - Family history:: not pertinent. Screenin:54 [facility] ED Fall Risk Assessment (Adult). Abuse screen: Denies threats or abuse. kr3 Nutritional screening: No deficits noted. Tuberculosis screening: No symptoms or risk factors identified. Assessment: 15:45 General: Behavior is calm, cooperative, appropriate for age. Pain: Complains of pain in jl7 left breast Pain currently is 9 out of 10 on a pain scale. Quality of pain is described as sharp, Is continuous. Neuro: Level of Consciousness is awake, alert, obeys commands, Oriented to person, place, time, situation. Cardiovascular: Rhythm is Respiratory: Airway is patent Respiratory effort is even, unlabored, Respiratory pattern is regular, symmetrical, Breath sounds are clear. Derm: Skin is pink, warm \\T\\ dry. 17:00 Reassessment: Patient appears in no apparent distress at this time. No changes from jl7 previously documented assessment. Patient and/or family updated on plan of care and expected duration. Pain level reassessed. Patient is alert, oriented x 3, equal unlabored respirations, skin warm/dry/pink. 17:42 Reassessment: Dr. Ramires at bedside discussing results and POC. jl7 17:54 Cardiovascular: Patient's skin is warm and dry. Respiratory: Airway is patent kr3 Respiratory effort is even, unlabored, Respiratory pattern is regular, symmetrical. 17:55 Cardiovascular: Rhythm is. kr3 Vital Signs: 15:28 BP 159 / 70; Pulse 86; Resp 20 S; Temp 98.5(O); Pulse Ox 99% on R/A; Weight 74.84 kg aa5 (R); Height 5 ft. 11 in. (180.34 cm) (R); 17:42 BP 143 / 62; Pulse 75; Resp 15; Pulse Ox 98% ; jl7 15:28 Body Mass Index 23.01 (74.84 kg, 180.34 cm) aa5 ED Course: 15:16 Patient arrived in ED. rg4 15:28 Arm band placed on. aa5 15:30 Triage completed. aa5 15:35 Bed in low position. Call light in reach. Side rails up X 1. kr3 15:52 Bruna Sharma, LINDEN is Primary Nurse. jl7 15:58 Mynor Ramires MD is Attending Physician. rt 16:00 Client placed on continuous cardiac and pulse oximetry monitoring. NIBP monitoring jl7 applied. 16:30 BNP Sent. em1 16:30 CMP Sent. em1 16:30 Troponin High Sensitivity Sent. em1 16:30 CBC with Diff Sent. em1 16:30 Initial lab(s) drawn, by me, sent to lab. Inserted saline lock: 20 gauge in right em1 forearm, using aseptic technique. Blood collected. 17:00 Chest Single View XRAY In Process Unspecified. EDMS 17:12 Head Brain Wo Cont CT In Process Unspecified. EDMS 17:44 Karel Victor MD is Referral Physician. rt 17:45 No provider procedures requiring assistance completed. IV discontinued, intact, jl7 bleeding controlled, No redness/swelling at site. Pressure dressing applied. Administered Medications: No medications were administered Medication: 18:17 VIS not applicable for this client. kr3 Outcome: 17:45 Discharge ordered by MD. rt 17:55 Discharged to home via wheelchair. kr3 17:55 Condition: stable 17:55 Discharge instructions given to patient, family, Instructed on discharge instructions, follow up and referral plans. Demonstrated understanding of instructions, follow-up care. 18:18 Patient left the ED. kr3 Signatures: Dispatcher [employer] VINHJuan Daniel Sorto em1 Annika Rausch, RN RN aa5 Cyndi Coburn rg4 Bruna Sharma RN RN jl7 Monik Garcia RN RN kr3 Mynro Ramires MD MD rt Corrections: (The following items were deleted from the chart) 15:31 15:28 BP 159 / 70; Pulse 86bpm; Resp 20bpm; Spontaneous; Pulse Ox 99% RA; aa5 aa5
[2022-02-21 18:36] VITALS: TEMP 98.5
[2022-02-21 18:45] VITALS: BP 143/62; O2SAT 98
== END 2022-02-21 18:18 | disposition home or self-care (01) ==
LOC: ER 15:14
DX: R07.9 Chest pain, unspecified (principal); R51.9 Headache, unspecified; I48.91 Unspecified atrial fibrillation; Z95.0 Presence of cardiac pacemaker
CPT/HCPCS: 36415; 70450; 71045; 80053; 83880; 84484; 85025; 93005

== ENCOUNTER 2022-02-28 08:21 | Day surgery (SDC) | payer OTHER ==
[2022-02-28] MEDS ORDERED: Ringers Lactate 1,000 ML IV ONE (08:45)
[2022-02-28] MEDS ORDERED: propofoL 200 MG/20 ML VIAL IV ONE (09:58)
[2022-02-28] MEDS ORDERED: LIDOCAINE 2% MPF 5 ML VIAL ONE (09:58)
[2022-02-28] MEDS ORDERED: ONDANSETRON 4 MG/2 ML VIAL ONE (09:58)
[2022-02-28] MEDS ORDERED: FENTANYL CITR 100 MCG/2 ML ONE ×2 (09:58→11:55)
[2022-02-28] MEDS ORDERED: ROCURONIUM 50 MG/5 ML VIAL IV ONE (09:58)
[2022-02-28] MEDS: CEFAZOLIN SODIUM 1 GM/VIAL ONE ×2 (10:58→11:35)
[2022-02-28] MEDS ORDERED: GLYCOPYRROLATE 0.2 MG/ML SYR ONE (12:26)
[2022-02-28] MEDS ORDERED: NEOSTIGMINE 1 MG/ML -5 ML ONE (12:26)
--- NOTE | 2022-02-28 12:37 | P.OP ---
Date of Service: 02/28/22 Preop diagnosis: Right spigelian hernia Postop diagnosis: Same Procedure performed: Laparoscopic assisted repair of right spigelian hernia Surgeon: Rafal Arreguin MD Performance Improvement Specialist: None Estimated blood loss: Minimal Specimen: Hernia sac Findings: As above Anesthesia: General Complications: None Drains: None Fluids and blood products: Nonapplicable Disposition: Recovery room Operative note: Patient brought to the OR and placed in the supine position. General anesthesia begun. Patient prepped and draped in the usual sterile fashion. Marcaine 0.5% infiltrated locally. 15 blade used to make a 1 cm infraumbilical midline incision. Subcutaneous tissue divided. Fascia identified and divided. #1 Vicryl stay suture placed. Peritoneal cavity entered with sharp and blunt dissection. 5 mm trocar placed under direct vision in the left lower quadrant. Laparoscopy revealed a right spigelian hernia. A 3 cm incision made over the hernia itself. Subcutaneous tissue divided. Sac identified and freed from the surrounding tissue. A 2 cm fascial defect identified. Sac excised at the level of the fascia. Bleeding controlled with cautery and 2-0 silk and 3-0 silk tie. And then the fascial defect was closed with a running #1 Vicryl suture. Complete coverage of the hernia defect was accomplished. Laparoscopy was performed again. There was no evidence of bleeding or bowel injury appreciated. Subsequently, all trochars removed under direct vision. Stay sutures tied to each other to reapproximate the fascial def ect. Subcutaneous wounds irrigated and bleeding controlled with cautery. 3-0 chromic used to approximate subcutaneous tissue. Landen used to close skin. Sterile dressing applied and patient awakened. Patient taken to recovery room in good general condition. CC:
[2022-02-28] MEDS ORDERED: CODEINE 30MG/APAP 300MG TAB PO PRN (12:39)
[2022-02-28] MEDS: MORPHINE 4 MG/ML SYR ONE ×2 (13:03→13:09)
[2022-02-28] MEDS ORDERED: MORPHINE 4 MG/ML SYR ONE (13:21)
[2022-02-28] MEDS ORDERED: CODEINE 30MG/APAP 300MG TAB ONE (13:49)
[2022-02-28 15:16] VITALS: TEMP 97.4; O2SAT 98
[2022-02-28 15:43] VITALS: BP 134/75
== END 2022-02-28 15:42 | disposition home or self-care (01) ==
LOC: OR 08:21
PROVIDERS: ATTEND Surgery
PROC: 0WQF4ZZ Repair Abdominal Wall, Percutaneous Endoscopic Approach (ICD-10-PCS; principal; 2022-02-28 10:15)
DX: K43.9 Ventral hernia without obstruction or gangrene (principal)
CPT/HCPCS: 88302; 49652; J2704; J2001; J3010 ×2; J2710; J7120; J2405; J0690